=== PATIENT | female | born 1945 | race Caucasian/White ===

== ENCOUNTER 2017-06-26 11:24 | Emergency (ER) | payer OTHER ==
[~2017-06-26] VITALS: Ht 154.9 cm; Wt 54.0 kg
[~2017-06-26 11:24] MED LIST: BLM PO; PREDNISONE 10MG10 M1 PO; ROBITUSSIN W/CO10 ML PO; ZITHROMAX Z-PA250 M1 PO
[2017-06-26 12:27] LABS: ABSOLUTE BASOPHIL COUNT 0 /CUMM (0.0-0.2); ABSOLUTE EOSINOPHIL COUNT 0 /CUMM (0.0-0.7); ABSOLUTE GRANULOCYTE CT 7.3 /CUMM (1.4-6.5); ABSOLUTE LYMPH COUNT 1.4 /CUMM (1.2-3.4); ABSOLUTE MONOCYTE COUNT 0.5 /CUMM (0.10-0.60); BASOPHIL % 0 % (0.0-2.0); EOSINOPHIL % 0.3 % (0-5); GRANULOCYTE % 79.3 % (42.2-75.2); HEMATOCRIT 41.5 % (37-47); MEAN CORPUSCULAR HGB 29.1 PG (27.0-31.0); MEAN CORPUSCULAR HGB CONC 33.5 G/DL (33.0-37.0); MEAN CORPUSCULAR VOLUME 86.8 FL (81.0-99.0); MEAN PLATELET VOLUME 9.3 FL (7.4-10.4); RBC DISTRIBUTION WIDTH 13.8 % (11.5-14.5); RED BLOOD CELL CT 4.78 /CUMM (4.20-5.40); WHITE BLOOD CELL COUNT 9.3 /CUMM (4.8-10.8)
[2017-06-26 12:44] LABS: PLATELET COUNT 224 /CUMM (130-400)
--- NOTE | 2017-06-26 13:44 | ED GENERAL ADULT ---
History of Present Illness General Chief Complaint: Chest Pain Stated Complaint: CP,VOMITING Source: patient, family Exam Limitations: clinical condition, SEVERE NAUSEA Vital Signs & Intake/Output Vital Signs & Intake/Output Vital Signs Date Time Temp Pulse Resp B/P B/P Pulse O2 O2 Flow FiO2 Mean Ox Delivery Rate 06/262 98/54 06/26 1915 98.3 63 18 82/48 99 Room Air 06/26 1736 90/54 06/26 1629 97.9 61 18 72/54 97 Room Air 06/26 1211 97.2 64 16 148/89 97 Room Air Allergies Coded Allergies: MDX - Adhesive (Adhesive) (RASH FROM ADHESIVE TAPE 02/28/13) MDX - Penicillin (UNKNOWN 05/04/12) MDX - TAPE (TAPE) (RASH FROM ADHESIVE TAPE 02/28/13) Uncoded Allergies: MOST NARCOTICS (NAUSEA 10/13/13) Reconcile Medications Azithromycin (Zithromax Z-Sonny) 250 MG CAP 1 DP PO AD OM 2 the first day followed by 1 for days 2-5 LIDO/MAAL/TISH (Magic Mouthwash) (Lido-Visc2% 30ML/[id number],MAALOX 120ml) 270 ML YEHUDA 10 ML PO TID PRN Mouth Pain EQUAL PARTS Metoclopramide HCl (Reglan) 10 MG TABLET 1 TAB PO Q6-PRN PRN nausea/vomiting 30 minutes before meals and bedtime Prednisone 10 MG TAB 1 TAB PO AD INFLAMMATION 3 TABS TWICE A DAY- DAY1,DAY2 2 TABS TWICE A DAY- DAY3,DAY4 3 TABS DAY 5 2 TABS DAY 6 Promethazine HCl 25 MG TABLET 1 TAB PO Q6P PRN NAUSEA/VOMITING Robitussin AC (Guaifenesin-Codeine Syrup) 10 ML UDC 5 ML PO Q6 COUGH Triage Note: PT TO ER C/O CHEST PAIN 10/22. PT STATES SHE HAS BEEN VOMITTING AND NAUSEOUS. PT STATES THAT SHE HAS A RASH TO HER ARMS AND HER PCP PUT HER ON PREDNISONE. PT STATES THAT SHE USE TO BE A TYPE 2 DIABETIC BUT LOST WEIGHT AND HAS BEEN FINE. PT STATES THAT SHE IS LIGHT HEADED AND FEELS WEEK. Triage Nurses Notes Reviewed? yes Onset: Gradual Duration: hour(s):, continues in ED, getting worse, intermittent, SINCE 8:00 THIS MORNING Severity: severe HPI: Patient presents for evaluation of multiple episodes of vomiting along with chest pain that began about 8:00 this morning. In addition the patient states that she has had multiple episodes of loose stool/ diarrhea and also a headache that she attributes to all of the vomiting. (Josephine JACKSON,Emanuel Oshea) Past History Travel History Traveled to [place] past 21 day No Medical History Any Pertinent Medical History? see below for history Endocrine: diabetes Other Medical Hx: Lichen planus Influenza Vaccine: 02/15/04 Surgical History Surgical History: non-contributory Psychosocial History Who do you live with Spouse Services at Home None What is your primary language [place] Citizen Tobacco Use: Never used Family History Hx Contributory? No (Josephine JACKSON,Emanuel Oshea) Review of Systems Review of Systems Constitutional: Reports: no symptoms. EENTM: Reports: no symptoms. Respiratory: Reports: no symptoms. Cardiovascular: Reports: see HPI. GI: Reports: see HPI. Genitourinary: Reports: no symptoms. Musculoskeletal: Reports: no symptoms. Skin: Reports: no symptoms. Neurological/Psychological: Reports: headache. Hematologic/Endocrine: Reports: no symptoms. Immunologic/Allergic: Reports: no symptoms. All Other Systems: Reviewed and Negative (Josephine JACKSON,Emanuel Oshea) Physical Exam Physical Exam General Appearance: SEE BELOW Comments: Gen.: Well-nourished, well-developed, no acute respiratory distress. Severely distressed secondary to nausea Head: Normocephalic, atraumatic. Eyes: Normal inspection bilaterally Ears: Normal inspection bilaterally Nose: Normal inspection Throat/mouth : Moist mucosa Neck: Supple, full range of motion, no goiter Heart: Regular rate and rhythm, no murmurs rubs or gallops Lungs: Clear to auscultation bilaterally with normal air entry Chest: Nontender Back: Normal range of motion Abdomen: Soft, nontender, nondistended, normal bowel sounds Extremities: Normal range of motion grossly, equal radial pulses, no cyanosis clubbing or edema Neurologic: Cranial nerves grossly intact, speech is clear Skin: warm and dry Psychiatric: Calm, cooperative, no apparent delusions or hallucinations Core Measures ACS in differential dx? No CVA/TIA Diagnosis: No Sepsis Present: No Sepsis Focused Exam Completed? No (Emanuel Burton MD) Progress Differential Diagnoses I considered the following diagnoses in my evaluation of the patient: Plan of Care: Orders Procedure Date/time Status LACTIC ACID 06/26 1448 Complete URINALYSIS 06/26 1148 Complete TROPONIN LEVEL 06/26 1148 Complete LACTIC ACID 06/26 1148 Complete COMPREHENSIVE METABOLIC PANEL 06/26 1148 Complete CBC WITHOUT DIFFERENTIAL 06/26 114 Complete EKG 06/26 1127 Active Laboratory Tests 06/26/17 1915: Urine Color YEL, Urine Clarity CLEAR, Urine pH 8.0, Ur Specific [place] 1.010, Urine Protein NEG, Urine Ketones NEG, Urine Nitrite NEG, Urine Bilirubin NEG, Urine Urobilinogen 0.2, Ur Leukocyte Esterase NEG, Ur Microscopic EXAM NOT REQUIRED, Urine Hemoglobin NEG, Urine Glucose NEG 06/26/17 1622: Lactic Acid 1.7 06/26/17 1220: Anion Gap 10, Estimated GFR > 60, BUN/Creatinine Ratio 33.3 H, Glucose 117 H, Lactic Acid 2.1, Calcium 10.6 H, Total Bilirubin 0.5, AST 19, ALT 15, Alkaline Phosphatase 59, Troponin I < 0.01, Total Protein 7.5, Albumin 4.4, Globulin 3.1, Albumin/Globulin Ratio 1.4, CBC w Diff NO MAN DIFF REQ, RBC 4.78, MCV 86.8, MCH 29.1, MCHC 33.5, RDW 13.8, MPV 9.3, Gran % 79.3 H, Lymphocytes % 15.2 L, Monocytes % 5.2, Eosinophils % 0.3, Basophils % 0, Absolute Granulocytes 7.3 H, Absolute Lymphocytes 1.4, Absolute Monocytes 0.5, Absolute Eosinophils 0, Absolute Basophils 0 Diagnostic Imaging: Discussed w/RAD: CT Scan. Radiology Impression: PATIENT: TRUONG KWOK PRESENT AGE: 72 PATIENT ACCOUNT NO: [id number] : 44 LOCATION: [facility] ORDERING PHYSICIAN: Emanuel Burton MD SERVICE DATE: 06/26/17 EXAM TYPE : CAT - CT ABD & PELVIS W IV CONTRAST EXAMINATION: CT ABDOMEN AND PELVIS WITH CONTRAST CLINICAL INFORMATION: Abdominal pain, colitis, diverticulitis , nausea COMPARISON: 09/16/2012 CT abdomen pelvis TECHNIQUE: Multidetector volumetric imaging was performed of the abdomen and pelvis following IV administration of 95 mL of Optiray 320 intravenous contrast. Sagittal and coronal reformatted images were obtained on the technologist's workstation. DLP: 247.60 mGy-cm FINDINGS: LUNG BASES: Limited images of lower thorax demonstrate patchy groundglass opacities in the bilateral lower lobes, predominantly on the right site. No pleural effusion. LIVER, GALLBLADDER, AND BILIARY TREE: The liver is normal in size, shape, and attenuation. No focal hepatic lesion or biliary ductal dilatation is present. The gallbladder is unremarkable with no evidence of radiopaque gallstones, gallbladder wall thickening, or obvious pericholecystic inflammatory changes. PANCREAS: Unremarkable. SPLEEN: Unremarkable. ADRENAL GLANDS: Unremarkable. KIDNEYS AND URETERS: The kidneys are normal in size, shape, and attenuation. No hydronephrosis, hydroureter, or calculi seen. No perinephric stranding. BLADDER: The urinary bladder is distended. There is trace amount of intravesical air, seen on sagittal image 60 and axial images 61 from series 2. No bladder stone. GASTROINTESTINAL TRACT: A gastric band is in place. There is a moderate size hiatal hernia, which contains the proximal part of the stomach, above the gastric band. The distal stomach is decompressed. The loops of the small bowel and colon are not dilated. Moderate diverticular disease of the sigmoid colon noted. No CT evidence of acute diverticulitis. There is no abnormal wall thickening or pericolonic inflammatory changes. There is no free fluid in the abdomen or pelvis. The appendix is not clearly seen, however there are no inflammatory changes to suggest acute appendicitis. ABDOMINAL WALL: No significant hernia is appreciated. LYMPH NODES: Normal. VASCULAR: Unremarkable. PELVIC VISCERA: The uterus and adnexa are unremarkable. OSSEOUS STRUCTURES: No aggressive bony lesion or acute bone fracture. IMPRESSION: Patchy groundglass airspace disease in the bilateral lower lobe, right more than left could represent pneumonia. Clinical correlation is suggested. A moderate size hiatal hernia which contains the proximal stomach above the gastric band. Colon diverticulosis without evidence of acute diverticulitis. DICTATED BY: Gil Rudd MD DATE/TIME DICTATED:06/26/171633 PAPER AND PRINTS RESTORER:KESHIA DATE/TIME TRANSCRIBED:06/26/171633 CONFIDENTIAL, DO NOT COPY WITHOUT APPROPRIATE AUTHORIZATION. <Electronically signed in Other Vendor System> SIGNED BY: Gil Rudd MD 06/26/17 2217 Initial ED EKG: NSR, rate (58) Comments: 06/26/2017 2:00:45 PM fluids and Phenergan ordered. Patient states her chest pain has resolved and her headache is improving. 06/26/2017 5:21:48 PM I have updated Truong on test results. She was in fact found sleeping upon my arrival and states she feels much better than upon presentation. With further questioning it there appears to be no history of dyspnea or productive cough. I doubt the patient truly has pneumonia as insinuated by the abdominal CAT scan. Patient agrees that this is unlikely. 06/26/2017 5:54:02 PM patient's case discussed with Dr. Ambrose Lutz who attempts to review the CAT scan report and call back. In the meantime he suggests a trial of clear liquids. If the patient is able to tolerate clear liquids she might be amenable to outpatient follow-up. 06/26/2017 6:47:11 PM Truong is being evaluated by the surgical PA withdrew 2 mL from the gastric band. fortunately she has been tolerating sips of enhanced water. Patient can be discharged with outpatient follow-up. 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 (Josephine JACKSON,Emanuel Oshea) Comments: Feels better, ambulates without complaint (Ryann JACKSON,Christiano) Departure Departure Disposition: HOME OR SELF CARE Condition: Stable Clinical Impression Primary Impression: Gastroenteritis Referrals: Crystal Goetz APRN (PCP/Family) Additional Instructions: Follow-up with Dr. Miller on Wednesday. Clear liquid diet. Phenergan as needed for nausea or vomiting. Add Reglan if necessary. Return if any concerns or sudden worsening. Please note that there might be incidental findings in your evaluation that are unrelated to the current emergency department visit. Please notify your primary care doctor about this emergency department visit in order to obtain and review all of the testing performed so that these incidental findings can be monitored as needed. If you had an x-ray performed, please understand that some fractures may not be seen on the initial set of x-rays. If your symptoms persist you might need a repeat set of x-rays to check for such a fracture. If you had a laceration evaluated, please understand that foreign bodies such as glass or wood may not be visible to the naked eye or on plain x-rays. If the wound becomes red, swollen, increasingly more painful or if there is any drainage from the wound, please have it reevaluated by a physician for the possibility of a retained foreign body. If you're unable to follow up as outlined in the discharge instructions please return to the emergency department. Thank you for choosing the [facility] Emergency Department for your care. It was a pleasure to serve you today. Emanuel Burton M.D. [facility] Departure Forms: Customer Survey General Discharge Information Prescriptions: Current Visit Scripts Metoclopramide HCl (Reglan) 1 TAB PO Q6-PRN PRN nausea/vomiting #20 TAB 30 minutes before meals and bedtime Promethazine HCl 1 TAB PO Q6P PRN NAUSEA/VOMITING #20 TAB (Josephine JACKSON,Emanuel Oshea) Departure Time of Disposition: 2235 (Ryann JACKSON,Christiano) Critical Care Note Critical Care Note Critical Care Time: 30-74 min (Josephine JACKSON,Emanuel Oshea)
--- NOTE | 2017-06-26 16:59 | CT SCAN REPORT ---
EXAMINATION: CT ABDOMEN AND PELVIS WITH CONTRAST CLINICAL INFORMATION: Abdominal pain, colitis, diverticulitis , nausea COMPARISON: 09/16/2012 CT abdomen pelvis TECHNIQUE: Multidetector volumetric imaging was performed of the abdomen and pelvis following IV administration of 95 mL of Optiray 320 intravenous contrast. Sagittal and coronal reformatted images were obtained on the technologist's workstation. DLP: 247.60 mGy-cm FINDINGS: LUNG BASES: Limited images of lower thorax demonstrate patchy groundglass opacities in the bilateral lower lobes, predominantly on the right site. No pleural effusion. LIVER, GALLBLADDER, AND BILIARY TREE: The liver is normal in size, shape, and attenuation. No focal hepatic lesion or biliary ductal dilatation is present. The gallbladder is unremarkable with no evidence of radiopaque gallstones, gallbladder wall thickening, or obvious pericholecystic inflammatory changes. PANCREAS: Unremarkable. SPLEEN: Unremarkable. ADRENAL GLANDS: Unremarkable. KIDNEYS AND URETERS: The kidneys are normal in size, shape, and attenuation. No hydronephrosis, hydroureter, or calculi seen. No perinephric stranding. BLADDER: The urinary bladder is distended. There is trace amount of intravesical air, seen on sagittal image 60 and axial images 61 from series 2. No bladder stone. GASTROINTESTINAL TRACT: A gastric band is in place. There is a moderate size hiatal hernia, which contains the proximal part of the stomach, above the gastric band. The distal stomach is decompressed. The loops of the small bowel and colon are not dilated. Moderate diverticular disease of the sigmoid colon noted. No CT evidence of acute diverticulitis. There is no abnormal wall thickening or pericolonic inflammatory changes. There is no free fluid in the abdomen or pelvis. The appendix is not clearly seen, however there are no inflammatory changes to suggest acute appendicitis. ABDOMINAL WALL: No significant hernia is appreciated. LYMPH NODES: Normal. VASCULAR: Unremarkable. PELVIC VISCERA: The uterus and adnexa are unremarkable. OSSEOUS STRUCTURES: No aggressive bony lesion or acute bone fracture. IMPRESSION: Patchy groundglass airspace disease in the bilateral lower lobe, right more than left could represent pneumonia. Clinical correlation is suggested. A moderate size hiatal hernia which contains the proximal stomach above the gastric band. Colon diverticulosis without evidence of acute diverticulitis.
[2017-06-26] MEDS ORDERED: REGLAN10 M1 PO (19:00)
[2017-06-26] MEDS ORDERED: PROMETHAZINE HC25 M3 PO (19:00)
--- NOTE | 2017-06-26 19:16 | Cons- Bariatrics Surg ---
Ulisses Mao 06/26/17 1902: General Information and HPI Consulting Request Date of Consult: 06/26/17 Requested By: Dr Burton, ER Reason for Consult: abdominal pain, nvd, hx of lap band surgery Source of Information: patient, family Exam Limitations: no limitations History of Present Illness: 72 yo female with sudden onset abdominal pain, nvd that started this am. she presented to the ER with severe cramping diffuse abdominal pain. no fever. hx of lap band surgery [address] Shahid Lutz. hx of GERD and has chronic reflux symptoms over the last several years. She was noted to be hypotensive in the ER. Labs drawn and CT scan was performed and she was treated with pepcid, IVF and antiemetics IV. Bariatric surgery was called for eval of the lap band. at time of my evaluation, pt is feeling significantly better and is able to tolerate po fluids, has no abominal pain, no vomiting and BP is improving. Allergies/Medications Allergies: Coded Allergies: MDX - Adhesive (Adhesive) (RASH FROM ADHESIVE TAPE 02/28/13) MDX - Penicillin (UNKNOWN 05/04/12) MDX - TAPE (TAPE) (RASH FROM ADHESIVE TAPE 02/28/13) Uncoded Allergies: MOST NARCOTICS (NAUSEA 10/13/13) Home Med List: Azithromycin (Zithromax Z-Sonny) 250 MG CAP 1 DP PO AD OM 2 the first day followed by 1 for days 2-5 LIDO/MAAL/TISH (Magic Mouthwash) (Lido-Visc2% 30ML/[id number],MAALOX 120ml) 270 ML YEHUDA 10 ML PO TID PRN Mouth Pain EQUAL PARTS Metoclopramide HCl (Reglan) 10 MG TABLET 1 TAB PO Q6-PRN PRN nausea/vomiting 30 minutes before meals and bedtime Prednisone 10 MG TAB 1 TAB PO AD INFLAMMATION 3 TABS TWICE A DAY- DAY1,DAY2 2 TABS TWICE A DAY- DAY3,DAY4 3 TABS DAY 5 2 TABS DAY 6 Promethazine HCl 25 MG TABLET 1 TAB PO Q6P PRN NAUSEA/VOMITING Robitussin AC (Guaifenesin-Codeine Syrup) 10 ML UDC 5 ML PO Q6 COUGH Past History Medical History Endocrine: diabetes Other Medical Hx: Lichen planus obesity, sp lap band Surgical History Pertinent Surgical History: lap band 2006 Psychosocial History Services at Home: None Functional Ability ADLs Independent: dressing, eating, toileting, bathing. Review of Systems Review of Systems Constitutional: Reports: see HPI. EENTM: Reports: no symptoms. Cardiovascular: Reports: no symptoms. Respiratory: Reports: no symptoms. GI: Reports: see HPI. Genitourinary: Reports: no symptoms. Musculoskeletal: Reports: no symptoms. Skin: Reports: no symptoms. Neurological/Psychological: Reports: no symptoms. Exam & Diagnostic Data Vital Signs and I&O Vital Signs Date Time Temp Pulse Resp B/P B/P Pulse O2 O2 Flow FiO2 Mean Ox Delivery Rate 06/26 1736 90/54 06/26 1629 97.9 61 18 72/54 97 Room Air 06/26 1211 97.2 64 16 148/89 97 Room Air Intake & Output 06/26 1600 06/26 0800 06/26 0000 06/25 1600 06/25 0800 06/25 0000 Intake Total Output Total Balance Patient 119 lb Weight Physical Exam General Appearance: well developed/nourished, no apparent distress, alert, awake , comfortable Head: atraumatic, normal appearance Eyes: Bilateral: normal appearance. Ears, Nose, Throat: normal ENT inspection Neck: normal inspection Respiratory: normal breath sounds, chest non-tender, no respiratory distress Cardiovascular: regular rate/rhythm Gastrointestinal: normal bowel sounds, soft, non-tender, no organomegaly Extremities: normal inspection, no edema Neurologic/Psych: no motor/sensory deficits, awake, alert, oriented x 3 Last 24 Hours of Labs: Laboratory Tests 06/26 06/26 1622 1220 Chemistry Sodium (137 - 145 mmol/L) 144 Potassium (3.5 - 5.1 mmol/L) 5.2 H Chloride (98 - 107 mmol/L) 96 L Carbon Dioxide (22 - 30 mmol/L) 38 H Anion Gap (5 - 16) 10 BUN (7 - 17 mg/dL) 20 H Creatinine (0.5 - 1.0 mg/dL) 0.6 Estimated GFR (>60 ml/min) > 60 BUN/Creatinine Ratio (7 - 25 %) 33.3 H Glucose (65 - 99 mg/dL) 117 H Lactic Acid (0.7 - 2.1 mmol/L) 1.7 2.1 Calcium (8.4 - 10.2 mg/dL) 10.6 H Total Bilirubin (0.2 - 1.3 mg/dL) 0.5 AST (14 - 36 U/L) 19 ALT (9 - 52 U/L) 15 Alkaline Phosphatase (<127 U/L) 59 Troponin I (< 0.11 ng/ml) < 0.01 Total Protein (6.3 - 8.2 g/dL) 7.5 Albumin (3.5 - 5.0 g/dL) 4.4 Globulin (1.9 - 4.2 gm/dL) 3.1 Albumin/Globulin Ratio (1.1 - 2.2 %) 1.4 Hematology CBC w Diff NO MAN DIFF REQ WBC (4.8 - 10.8 /CUMM) 9.3 RBC (4.20 - 5.40 /CUMM) 4.78 Hgb (12.0 - 16.0 G/DL) 13.9 Hct (37 - 47 %) 41.5 MCV (81.0 - 99.0 FL) 86.8 MCH (27.0 - 31.0 PG) 29.1 MCHC (33.0 - 37.0 G/DL) 33.5 RDW (11.5 - 14.5 %) 13.8 Plt Count (130 - 400 /CUMM) 224 MPV (7.4 - 10.4 FL) 9.3 Gran % (42.2 - 75.2 %) 79.3 H Lymphocytes % (20.5 - 51.1 %) 15.2 L Monocytes % (1.7 - 9.3 %) 5.2 Eosinophils % (0 - 5 %) 0.3 Basophils % (0.0 - 2.0 %) 0 Absolute Granulocytes (1.4 - 6.5 /CUMM) 7.3 H Absolute Lymphocytes (1.2 - 3.4 /CUMM) 1.4 Absolute Monocytes (0.10 - 0.60 /CUMM) 0.5 Absolute Eosinophils (0.0 - 0.7 /CUMM) 0 Absolute Basophils (0.0 - 0.2 /CUMM) 0 Imaging Results: PATIENT: TRUONG KWOK PRESENT AGE: 72 PATIENT ACCOUNT NO: [id number] : 44 LOCATION: [facility] ORDERING PHYSICIAN: Emanuel Burton MD SERVICE DATE: 06/26/17 EXAM TYPE: CAT - CT ABD & PELVIS W IV CONTRAST EXAMINATION: CT ABDOMEN AND PELVIS WITH CONTRAST CLINICAL INFORMATION: Abdominal pain, colitis, diverticulitis , nausea COMPARISON: 09/16/2012 CT abdomen pelvis TECHNIQUE: Multidetector volumetric imaging was performed of the abdomen and pelvis following IV administration of 95 mL of Optiray 320 intravenous contrast. Sagittal and coronal reformatted images were obtained on the technologist's workstation. DLP: 247.60 mGy-cm FINDINGS: LUNG BASES: Limited images of lower thorax demonstrate patchy groundglass opacities in the bilateral lower lobes, predominantly on the right site. No pleural effusion. LIVER, GALLBLADDER, AND BILIARY TREE: The liver is normal in size, shape, and attenuation. No focal hepatic lesion or biliary ductal dilatation is present. The gallbladder is unremarkable with no evidence of radiopaque gallstones, gallbladder wall thickening, or obvious pericholecystic inflammatory changes. PANCREAS: Unremarkable. SPLEEN: Unremarkable. ADRENAL GLANDS: Unremarkable. KIDNEYS AND URETERS: The kidneys are normal in size, shape, and attenuation. No hydronephrosis, hydroureter, or calculi seen. No perinephric stranding. BLADDER: The urinary bladder is distended. There is trace amount of intravesical air, seen on sagittal image 60 and axial images 61 from series 2. No bladder stone. GASTROINTESTINAL TRACT: A gastric band is in place. There is a moderate size hiatal hernia, which contains the proximal part of the stomach, above the gastric band. The distal stomach is decompressed. The loops of the small bowel and colon are not dilated. Moderate diverticular disease of the sigmoid colon noted. No CT evidence of acute diverticulitis. There is no abnormal wall thickening or pericolonic inflammatory changes. There is no free fluid in the abdomen or pelvis. The appendix is not clearly seen, however there are no inflammatory changes to suggest acute appendicitis. ABDOMINAL WALL: No significant hernia is appreciated. LYMPH NODES: Normal. VASCULAR: Unremarkable. PELVIC VISCERA: The uterus and adnexa are unremarkable. OSSEOUS STRUCTURES: No aggressive bony lesion or acute bone fracture. IMPRESSION: Patchy groundglass airspace disease in the bilateral lower lobe, right more than left could represent pneumonia. Clinical correlation is suggested. A moderate size hiatal hernia which contains the proximal stomach above the gastric band. Colon diverticulosis without evidence of acute diverticulitis. DICTATED BY: Gil Rudd MD DATE/TIME DICTATED:06/26/17 1634 Assessment/Plan Assessment/Plan 72 yo female with acute onset of abdominal pain, nvd, dehydration, improved after IVF in ER to aide in pts PO intake, the gastric band fluid was removed. the port was palpated in the R mid abdominal region without difficluty. steril prep, 1 inch askew needle introduced into the port without difficluty and the entirety of the fluid aspirated, 2cc total. pt tolerated without complications. Rec cont po hydration and if she continues to tolerate fluids without difficluty , she may be discharged home with close follow up this week with Dr Lutz. Pt and nancy understand and agree with plan. Dw Dr Guido Lutz and ER physician Dr Burton. Problem List: 1. Gastroenteritis 2. Hx of laparoscopic gastric banding Consult Acknowledgment - Thank you for your consult request. Emanuel Burton MD 06/26/171925: Assessment/Plan Consult Acknowledgment - Thank you for your consult request.
[2017-06-26 21:22] VITALS: BP 98/54
== END 2017-06-26 22:39 ==
LOC: ERH 11:24
PROVIDERS: Physician Assistant Medical
DX: R07.9 Chest pain, unspecified (principal); K52.9 Noninfective gastroenteritis and colitis, unspecified
CPT/HCPCS: 74177; 81003; 93005; 93010; 96374; 96375; 99291; J2550; J2765; J3101

== ENCOUNTER 2017-06-28 05:15 | Inpatient (IN) | payer OTHER ==
[~2017-06-28] VITALS: Ht 154.9 cm; Wt 53.6 kg
[~2017-06-28 05:15] MED LIST changes: +PROMETHAZINE HC25 M3 PO; +REGLAN10 M1 PO
--- NOTE | 2017-06-28 05:36 | ED GI/GU/ABDOMINAL COMPLAINT ---
See Addendum History of Present Illness General Chief Complaint: Nausea, Vomiting, Diarrhea Stated Complaint: NAUSEA, VOMITING Source: patient, family, old records, EMS Exam Limitations: no limitations Vital Signs & Intake/Output Vital Signs & Intake/Output Vital Signs Date Time Temp Pulse Resp B/P B/P Pulse O2 O2 Flow FiO2 Mean Ox Delivery Rate 06/28 0732 97.0 80 16 160/76 100 Room Air 06/28 0649 96.9 101 18 155/90 97 Room Air 06/28 0518 96.7 107 22 159/74 98 Room Air Allergies Coded Allergies: adhesive tape (Intermediate, RASH 06/28/17) Penicillins (UNKNOWN 06/28/17) Uncoded Allergies: MOST NARCOTICS (Mild, NAUSEA 06/28/17) Reconcile Medications Azithromycin (Zithromax Z-Sonny) 250 MG CAP 1 DP PO AD OM 2 the first day followed by 1 for days 2-5 LIDO/MAAL/TISH (Magic Mouthwash) (Lido-Visc2% 30ML/[id number],MAALOX 120ml) 270 ML YEHUDA 10 ML PO TID PRN Mouth Pain EQUAL PARTS Metoclopramide HCl (Reglan) 10 MG TABLET 1 TAB PO Q6-PRN PRN nausea/vomiting 30 minutes before meals and bedtime Prednisone 10 MG TAB 1 TAB PO AD INFLAMMATION 3 TABS TWICE A DAY- DAY1,DAY2 2 TABS TWICE A DAY- DAY3,DAY4 3 TABS DAY 5 2 TABS DAY 6 Promethazine HCl 25 MG TABLET 1 TAB PO Q6P PRN NAUSEA/VOMITING Robitussin AC (Guaifenesin-Codeine Syrup) 10 ML UDC 5 ML PO Q6 COUGH Triage Nurses Notes Reviewed? yes LMP (ages 10-50): post menopausal ? n Is pt currently ? No Onset: Evening Duration: hour(s):, constant, continues in ED Timing: recent history Quality/Severity: cramping, severe, vomiting Location: epigastric Radiation: no radiation Activities at Onset: rest Prior Abdominal Problems: similar symptoms Past Sexual History: Unobtainable at this time Modifying Factors: Worsens With: eating. Associated Symptoms: abdominal pain, loss of appetite, nausea/vomiting HPI: Less than 1 day prior to admission patient had recurrent nausea vomiting crampy epigastric pain with associated weakness. She denies fever chills diarrhea chest pain cough shortness breath headache dysuria rash bleeding. She was seen 2 days ago with deflation of lap band. (Christiano Garzon MD) Past History Travel History Traveled to [place] past 21 day No Medical History Any Pertinent Medical History? see below for history Endocrine: diabetes Other Medical Hx: Lichen planus obesity, sp lap band Surgical History Surgical History: lap band 2006 Psychosocial History Who do you live with Spouse Services at Home None What is your primary language Singaporean Family History Hx Contributory? No (Christiano Garzon MD) Review of Systems Review of Systems Constitutional: Reports: see HPI. EENTM: Reports: no symptoms. Respiratory: Reports: no symptoms. Cardiovascular: Reports: no symptoms. GI: Reports: see HPI, abdominal pain, nausea, vomiting. Genitourinary: Reports: no symptoms. Musculoskeletal: Reports: no symptoms. Skin: Reports: no symptoms. Neurological/Psychological: Reports: no symptoms. Hematologic/Endocrine: Reports: no symptoms. Immunologic/Allergic: Reports: no symptoms. All Other Systems: Reviewed and Negative (Christiano Garzon MD) Physical Exam Physical Exam General Appearance: well developed/nourished, alert, awake, anxious, moderate distress, thin Head: atraumatic, normal appearance Eyes: Bilateral: normal appearance, PERRL, EOMI, normal inspection. Ears, Nose, Throat, Mouth: hearing grossly normal Neck: normal inspection, supple, full range of motion, normal alignment Respiratory: normal breath sounds, chest non-tender, no respiratory distress, quiet respiration, lungs clear Cardiovascular: regular rate/rhythm, normal peripheral pulses, norml femoral pulses equa Peripheral Pulses: 4+ carotid (R), 4+ carotid (L) Gastrointestinal: normal bowel sounds, soft, non-tender, no organomegaly Back: normal inspection, normal range of motion Extremities: normal range of motion, no ligament instability Neurologic/Psych: no motor/sensory deficits, awake, alert, oriented x 3, normal gait, normal mood/affect, 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 No Sepsis Present: No Sepsis Focused Exam Completed? No (Christiano Garzon MD) Progress Differential Diagnosis: gastritis, PUD/GERD, gastroparesis Plan of Care: Orders Procedure Date/time Status XRY-UPPER GI SERIES 06/28 0650 Active Add-on Test (ER Only) 06/28 0532 Active MAGNESIUM 06/28 0530 Complete URINALYSIS 06/28 05 Complete LIPASE 06/28 05 Complete COMPREHENSIVE METABOLIC PANEL 06/29 523 Complete CBC WITHOUT DIFFERENTIAL 06/29 523 Complete Laboratory Tests 06/28/17 0530: Anion Gap 13, Estimated GFR > 60, BUN/Creatinine Ratio 16.0, Glucose 112 H, Calcium 9.5, Magnesium 1.9, Total Bilirubin 0.9, AST 21, ALT 24, Alkaline Phosphatase 61, Total Protein 7.2, Albumin 4.3, Globulin 2.9, Albumin/Globulin Ratio 1.5, Lipase 118, CBC w Diff NO MAN DIFF REQ, RBC 4.78, MCV 86.5, MCH 28.9, MCHC 33.3, RDW 13.8, MPV 9.1, Gran % 64.9, Lymphocytes % 24.5, Monocytes % 7.6, Eosinophils % 2.5, Basophils % 0.5, Absolute Granulocytes 4.9, Absolute Lymphocytes 1.9, Absolute Monocytes 0.6, Absolute Eosinophils 0.2, Absolute Basophils 0, Urinalysis MOD H, Urine Color STRAW, Urine Clarity CLEAR, Urine pH 7.0, Ur Specific [place] 1.015, Urine Protein NEG, Urine Ketones NEG, Urine Nitrite POS H, Urine Bilirubin NEG, Urine Urobilinogen 0.2, Ur Leukocyte Esterase TRACE H, Ur Microscopic SEDIMENT EXAMINED, Urine RBC 5-10 H, Urine WBC 5-10 H, Ur Epithelial Cells FEW, Urine Bacteria MANY H, Urine Mucus FEW, Urine Hemoglobin TRACE-INTACT, Urine Glucose NEG Initial ED EKG: none Hand-Off Endorsed To: Emanuel Alba DO Endorsed Time: 714 Pending: consult, other Comments: Discussed with Dr. Jan Lutz someone from group to see in ED. Requests esophagogram prior to determine possible etiology of n/v. (Christiano Garzon MD) Departure Departure Disposition: STILL A PATIENT Condition: Stable Clinical Impression Primary Impression: Nausea and vomiting in adult Referrals: Crystal Goetz APRN (PCP/Family) Departure Forms: Customer Survey General Discharge Information (Christiano Garzon MD) Departure Comments 06/28/17 The patient was signed out to me by Dr. Garzon. She is waiting for evaluation by the bariatric surgeon. She has ongoing nausea and vomiting. (Emanuel Alba DO)
[2017-06-28 05:43] LABS: ABSOLUTE BASOPHIL COUNT 0 /CUMM (0.0-0.2); ABSOLUTE EOSINOPHIL COUNT 0.2 /CUMM (0.0-0.7); ABSOLUTE GRANULOCYTE CT 4.9 /CUMM (1.4-6.5); ABSOLUTE LYMPH COUNT 1.9 /CUMM (1.2-3.4); ABSOLUTE MONOCYTE COUNT 0.6 /CUMM (0.10-0.60); BASOPHIL % 0.5 % (0.0-2.0); EOSINOPHIL % 2.5 % (0-5); GRANULOCYTE % 64.9 % (42.2-75.2); HEMATOCRIT 41.4 % (37-47); MEAN CORPUSCULAR HGB 28.9 PG (27.0-31.0); MEAN CORPUSCULAR HGB CONC 33.3 G/DL (33.0-37.0); MEAN CORPUSCULAR VOLUME 86.5 FL (81.0-99.0); MEAN PLATELET VOLUME 9.1 FL (7.4-10.4); PLATELET COUNT 208 /CUMM (130-400); RBC DISTRIBUTION WIDTH 13.8 % (11.5-14.5); RED BLOOD CELL CT 4.78 /CUMM (4.20-5.40); WHITE BLOOD CELL COUNT 7.6 /CUMM (4.8-10.8)
--- NOTE | 2017-06-28 11:59 | RADIOLOGY REPORT ---
EXAMINATION: SINGLE-CONTRAST FLUOROSCOPIC UPPER GI SERIES with KUB CLINICAL INFORMATION: History of lap band. Now with nausea and vomiting. COMPARISON: CT scan of the abdomen and pelvis dated 06/26/2017. TECHNIQUE: Examination performed with dilute barium. Spot radiographs (15) and 7 cine fluoroscopy runs were obtained. FINDINGS: The civil service clerk film shows a port in the right side of the abdomen with intact tubing extending to the gastric band in the left upper quadrant which is oriented at 45 degrees superior to the horizontal plane. Several lindsay are seen in the epigastric region. Patient ingested barium without difficulty. There is mild esophageal hypotonia with slowed esophageal emptying. There is a small hiatal hernia with herniation of the gastric pouch into the lower chest. The lap band remains situated below the diaphragm. The ingested barium passes freely through the gastric band without obstruction seen. A nonobstructing Schatzki ring and minimal irregularity of the distal esophagus is seen at the GE junction. No esophageal dilatation, gastric band slippage or distal gastric obstruction identified. FLUOROSCOPY TIME: 2.10 minutes. IMPRESSION: 1. Small hiatal hernia, containing the gastric pouch. 2. There may be a subtle nonobstructing Schatzki ring with slight esophageal irregularity at the GE junction, raising the suspicion of subtle esophagitis. No ulceration or mass is seen. 3. No evidence of gastric outlet obstruction.
--- NOTE | 2017-06-28 15:00 | History & Physical ---
Rosalba JACKSON,Darius 06/28/17 1459: General Information and HPI History of Present Illness: Ms. Ivey is a 72-year-old female with past medical history of diabetes mellitus, GERD, obesity status post [place] [address] Miller, lichen planus on prednisone followed by Dr. Talavera, and esophageal spasms followed by Dr. Parkinson who presents with nausea and vomiting. The patient reports that the nausea started on Wednesday. It started as a small pain in her chest and progressed to vomiting. She came to the emergency room on Wednesday and was treated with antinausea medications. She felt some relief and went home that night. Wednesday she felt good had a clear liquid diet and had no nausea or vomiting. However on Wednesday, she began experiencing pain in the chest again and nausea. She describes the pain as electric, in the center of her chest, comes and goes, and progresses. She tried the nausea medication she was prescribed but felt no relief so she came to the emergency room for further evaluation. She additionally reports 6-7 nonbloody loose stools per day, chills, night sweats, cough at nighttime, and no relationship to food intake. She has no fever, shortness breath, dysuria, recent on food intake, sick contacts, travel. She did recently start course of prednisone for the lichen planus. Last colonoscopy was in 2012. She did have an endoscopy in 2012 that showed distal erosive esophagitis with a hiatal hernia. Pathology subsequently revealed features consistent with reactive gastropathy and mild chronic inflammation and congestion but no evidence of malignancy. She is a former smoker and denies alcohol or drug use. Allergies/Medications Allergies: Coded Allergies: adhesive tape (Intermediate, RASH 06/28/17) Penicillins (UNKNOWN 06/28/17) Uncoded Allergies: MOST NARCOTICS (Mild, NAUSEA 06/28/17) Home Med list Azithromycin (Zithromax Z-Sonny) 250 MG CAP 1 DP PO AD OM 2 the first day followed by 1 for days 2-5 LIDO/MAAL/TISH (Magic Mouthwash) (Lido-Visc2% 30ML/[id number],MAALOX 120ml) 270 ML YEHUDA 10 ML PO TID PRN Mouth Pain EQUAL PARTS Metoclopramide HCl (Reglan) 10 MG TABLET 1 TAB PO Q6-PRN PRN nausea/vomiting 30 minutes before meals and bedtime Prednisone 10 MG TAB 1 TAB PO AD INFLAMMATION 3 TABS TWICE A DAY- DAY1,DAY2 2 TABS TWICE A DAY- DAY3,DAY4 3 TABS DAY 5 2 TABS DAY 6 Promethazine HCl 25 MG TABLET 1 TAB PO Q6P PRN NAUSEA/VOMITING Robitussin AC (Guaifenesin-Codeine Syrup) 10 ML UDC 5 ML PO Q6 COUGH Past History Travel History Traveled to [place] past 21 day No Medical History Neurological: NONE EENT: NONE Cardiovascular: NONE Respiratory: NONE Gastrointestinal: GERD, hiatal hernia, LAPBAND Hepatic: NONE Renal: NONE Musculoskeletal: NONE Psychiatric: NONE Endocrine: diabetes Other Medical Hx: Lichen planus obesity, sp lap band Surgical History Surgical History: lap band 2006 Past Family/Social History Psychosocial History Services at Home: None Smoking Status: Former Smoker ETOH Use: denies use Illicit Drug Use: denies illicit drug use Functional Ability ADLs Independent: dressing, eating, toileting, bathing. Sexual History Past Sexual History Unobtainable at this time Review of Systems Review of Systems Constitutional: Reports: see HPI. EENTM: Reports: no symptoms. Cardiovascular: Reports: see HPI. Respiratory: Reports: no symptoms. GI: Reports: see HPI. Genitourinary: Reports: no symptoms. Musculoskeletal: Reports: no symptoms. Skin: Reports: see HPI. Neurological/Psychological: Reports: no symptoms. Hematologic/Endocrine: Reports: no symptoms. Immunologic/Allergic: Reports: no symptoms. All Other Systems: Reviewed and Negative Exam & Diagnostic Data Last 24 Hrs of Vital Signs/I&O Vital Signs Date Time Temp Pulse Resp B/P B/P Pulse O2 O2 Flow FiO2 Mean Ox Delivery Rate 06/28 1423 98.7 71 18 140/80 100 Room Air 06/28 1144 97.6 70 18 161/89 100 Room Air 06/28 1000 97.0 88 18 158/86 96 Room Air 06/28 0732 97.0 80 16 160/76 100 Room Air 06/28 0649 96.9 101 18 155/90 97 Room Air 06/28 0518 96.7 107 22 159/74 98 Room Air Intake & Output 06/28 1600 06/28 0800 06/28 0000 Intake Total 1000 Output Total 300 Balance 700 Intake, IV 1000 Output, Urine 300 Physical Exam General Appearance Alert, Oriented X3, Cooperative, No Acute Distress Skin No Breakdown HEENT Atraumatic, dry Neck No thryomegaly, No LAD Cardiovascular Regular Rate, Normal S1, Normal S2 Lungs Clear to Auscultation, Normal Air Movement Abdomen Soft, No Hepatospenomegaly, hard mass in center, nontender to palpation Extremities No Edema, Normal Pulses, No Tenderness/Swelling Last 24 Hrs of Labs/Theo: Laboratory Tests 06/28/17 0530: Anion Gap 13, Estimated GFR > 60, BUN/Creatinine Ratio 16.0, Glucose 112 H, Hemoglobin A1c Pending, Calcium 9.5, Magnesium 1.9, Total Bilirubin 0.9, AST 21, ALT 24, Alkaline Phosphatase 61, Troponin I Pending, Total Protein 7.2, Albumin 4.3, Globulin 2.9, Albumin/Globulin Ratio 1.5, Lipase 118, CBC w Diff NO MAN DIFF REQ, RBC 4.78, MCV 86.5, MCH 28.9, MCHC 33.3, RDW 13.8, MPV 9.1, Gran % 64.9, Lymphocytes % 24.5, Monocytes % 7.6, Eosinophils % 2.5, Basophils % 0.5, Absolute Granulocytes 4.9, Absolute Lymphocytes 1.9, Absolute Monocytes 0.6, Absolute Eosinophils 0.2, Absolute Basophils 0, Urinalysis MOD H, Urine Color STRAW, Urine Clarity CLEAR, Urine pH 7.0, Ur Specific [place] 1.015, Urine Protein NEG, Urine Ketones NEG, Urine Nitrite POS H, Urine Bilirubin NEG, Urine Urobilinogen 0.2, Ur Leukocyte Esterase TRACE H, Ur Microscopic SEDIMENT EXAMINED, Urine RBC 5-10 H, Urine WBC 5-10 H, Ur Epithelial Cells FEW, Urine Bacteria MANY H, Urine Mucus FEW, Urine Hemoglobin TRACE-INTACT, Urine Glucose NEG Assessment/Plan Assessment: Ms. Ivey is a 72-year-old female with past medical history of diabetes mellitus, GERD, obesity status post [place] [address] Miller, lichen planus on prednisone followed by Dr. Talavera, and esophageal spasms followed by Dr. Parkinson who presents with nausea and vomiting. Presentation, vital signs were T 96.7, HR 107, RR 22, BP 159/74, saturating 98% on room air. Laboratories were sent in for normal CBC and BEP and LFTs. Urinalysis was positive for nitrates, leukocyte esterase, and 510 WBCs. Her GI series showed a small hiatal hernia containing the gastric pouch, a subtle nonobstructing Schatzki ring with slight esophageal irregularity of the GE junction raising suspicion for esophagitis, and no evidence of gastric outlet obstruction. She was treated with acetaminophen, metoclopramide, promethazine, famotidine, and 1 L normal saline in the emergency room. She'll be admitted to general medicine and treated for the following problems: 1. Esophagitis 2. Chest pain syndrome 3. Acute diarrhea #Esophagitis: Patient presents with nausea and vomiting with history of GERD and previous endoscopy showing esophagitis/gastritis. Upper GI series this time shows esophagitis as well. Other potential etiologies include viral gastroenteritis given that she has experienced chills and night sweats recently. She also has been having diarrhea that would be consistent with this. -Nothing by mouth -IV fluid hydration -Gastroenterology consult -Bariatric surgery consult -Antinausea medications -EKG for QTC #Chest pain syndrome: The patient is complaining of chest/upper epigastric pain most likely consistent with the esophagitis is gastritis. However we will rule her out for FL as well. -EKG and troponins 3 #Acute diarrhea: Patient also experiencing 67 nonbloody loose stools per day. Unclear etiology, may be secondary to the stress of the esophagitis. -Send C. difficile/stool culture -Antidiarrheals if persistent without evidence of infection #Chronic medical palms: -Continue other home medications DVT prophylaxis with enoxaparin Nothing by mouth Full code As Ranked By This Provider Problem List: 1. Esophagitis Core Measures/Misc (11/29) Acute Coronary Syndrome ACS Diagnosis: No Congestive Heart Failure Congestive Heart Failure Diagnosis No Cerebrovascular Accident CVA/TIA Diagnosis: No VTE (View Protocol) VTE Risk Factors Age>40 No Mechanical VTE Prophylaxis d/t N/A MechProphylax Ordered No VTE Pharm Prophylaxis d/t NA PharmProphylax ordered Sepsis (View protocol) Sepsis Present: No Nadine Townsend MD 06/28/17 1635: Attending MD Review Statement Attending Statement Attending MD Statement: examined this patient, discuss w/resident/PA/PRECAST CONCRETE PRODUCTS INSTALLER, agreed w/resident/PA/[employer] CONCRETE PRODUCTS INSTALLER, discussed with family, reviewed EMR data (avail), reviewed images, amended to note Attending Assessment/Plan: 72-year-old female with past medical history significant for gastric lap band 12 years ago, depression, lichen planus who was seen in the emergency room 2 days ago with intractable nausea, vomiting and diarrhea. Patient was seen by surgical PA and fluid was aspirated from the gastric band. Patient was sent home. Claims that next day which was Wednesday she will was fine but then this morning she started to throw up again. She describes nausea as well as epigastric pain which is burning. She claimed that vomiting is intractable. She is also complaining of some epigastric pain. She denies any fevers or chills. She was also recently started on prednisone for lichen planus. She has not taken any prednisone since last 4 days. Vital Signs Date Time Temp Pulse Resp B/P B/P Pulse O2 O2 Flow FiO2 Mean Ox Delivery Rate 06/28 1423 98.7 71 18 140/80 100 Room Air 06/28 1144 97.6 70 18 161/89 100 Room Air 06/28 1000 97.0 88 18 158/86 96 Room Air 06/28 0732 97.0 80 16 160/76 100 Room Air 06/28 0649 96.9 101 18 155/90 97 Room Air 06/28 0518 96.7 107 22 159/74 98 Room Air on exam: aox3, nad. cv; s1, s2, rrr resp; clear abd; soft, mildly tender in epigastrium, bs+ ext; no edema Laboratory Tests 06/28 0530 Chemistry Sodium (137 - 145 mmol/L) 145 Potassium (3.5 - 5.1 mmol/L) 3.8 Chloride (98 - 107 mmol/L) 104 Carbon Dioxide (22 - 30 mmol/L) 28 Anion Gap (5 - 16) 13 BUN (7 - 17 mg/dL) 8 Creatinine (0.5 - 1.0 mg/dL) 0.5 Estimated GFR (>60 ml/min) > 60 BUN/Creatinine Ratio (7 - 25 %) 16.0 Glucose (65 - 99 mg/dL) 112 H Hemoglobin A1c (4.2 - 5.8 %) Pending Calcium (8.4 - 10.2 mg/dL) 9.5 Magnesium (1.6 - 2.3 mg/dL) 1.9 Total Bilirubin (0.2 - 1.3 mg/dL) 0.9 AST (14 - 36 U/L) 21 ALT (9 - 52 U/L) 24 Alkaline Phosphatase (<127 U/L) 61 Troponin I (< 0.11 ng/ml) < 0.01 Total Protein (6.3 - 8.2 g/dL) 7.2 Albumin (3.5 - 5.0 g/dL) 4.3 Globulin (1.9 - 4.2 gm/dL) 2.9 Albumin/Globulin Ratio (1.1 - 2.2 %) 1.5 Lipase (23 - 300 U/L) 118 Hematology CBC w Diff NO MAN DIFF REQ WBC (4.8 - 10.8 /CUMM) 7.6 RBC (4.20 - 5.40 /CUMM) 4.78 Hgb (12.0 - 16.0 G/DL) 13.8 Hct (37 - 47 %) 41.4 MCV (81.0 - 99.0 FL) 86.5 MCH (27.0 - 31.0 PG) 28.9 MCHC (33.0 - 37.0 G/DL) 33.3 RDW (11.5 - 14.5 %) 13.8 Plt Count (130 - 400 /CUMM) 208 MPV (7.4 - 10.4 FL) 9.1 Gran % (42.2 - 75.2 %) 64.9 Lymphocytes % (20.5 - 51.1 %) 24.5 Monocytes % (1.7 - 9.3 %) 7.6 Eosinophils % (0 - 5 %) 2.5 Basophils % (0.0 - 2.0 %) 0.5 Absolute Granulocytes (1.4 - 6.5 /CUMM) 4.9 Absolute Lymphocytes (1.2 - 3.4 /CUMM) 1.9 Absolute Monocytes (0.10 - 0.60 /CUMM) 0.6 Absolute Eosinophils (0.0 - 0.7 /CUMM) 0.2 Absolute Basophils (0.0 - 0.2 /CUMM) 0 Urines Urinalysis MOD H Urine Color (YEL,AMB,STR) STRAW Urine Clarity (CLEAR) CLEAR Urine pH (5.0 - 8.0) 7.0 Ur Specific [place] (1.001 - 1.035) 1.015 Urine Protein (NEG,<30 MG/DL) NEG Urine Ketones (NEG) NEG Urine Nitrite (NEG) POS H Urine Bilirubin (NEG) NEG Urine Urobilinogen (0.1 - 1.0 EU/dl) 0.2 Ur Leukocyte Esterase (NEG) TRACE H Ur Microscopic SEDIMENT EXAMINED Urine RBC (0 - 5 /HPF) 5-10 H Urine WBC (0 - 2 /HPF) 5-10 H Ur Epithelial Cells (NONE,FEW) FEW Urine Bacteria (NEG/NONE) MANY H Urine Mucus (FEW,NONE) FEW Urine Hemoglobin (NEG) TRACE-INTACT Urine Glucose (N MG/DL) NEG GI series: IMPRESSION: 1. Small hiatal hernia, containing the gastric pouch. 2. There may be a subtle nonobstructing Schatzki ring with slight esophageal irregularity at the GE junction, raising the suspicion of subtle esophagitis. No ulceration or mass is seen. 3. No evidence of gastric outlet obstruction. EKG: pending. A/P: 72-year-old female with past medical history significant for gastric lap band 12 years ago, depression, lichen planus admitted with intractable nausea, vomiting, epigastric discomfort and some diarrhea. Patient admitted to medicine. She will be hydrated with IV fluids and symptomatic treatment with antiemetics after making sure EKG is normal including QTC. Please consult bariatric surgery Dr. Miller. Please consult GI Dr. Parkinson. Patient has had endoscopy [address] Parkinson which does show some evidence of gastritis/hiatal hernia. GI series is also consistent with esophagitis. IV PPI should be started. Hold prednisone, no NSAIDs. Nothing by mouth with IV fluids. Pharmacologic DVT plexus. Patient is a full code Jonah Paula 06/28/17 1851: Resident Review Statement Resident Statement: examined this patient, discussed with internal controls analyst, agreed with internal controls analyst, discussed with family, reviewed EMR data (avail), discussed with case mgmt, reviewed images, amended to note Other Findings: 72-year-old woman with history of gastric lap band in 2006, history of depression, lichen planus presented to [facility] ED on 06/26/2017 with nausea, vomiting and diarrhea, underwent gastric band deflation, and was discharged on antiemetics. Patient felt better the following day, but subsequently started spacing the same symptoms again much worse, that prompted her current visit to the ED. She continues to have nausea, and burning epigastric pain. She has also reported episodes of diarrhea. Patient was started on prednisone for lichen planus 2 months ago. Patient denies use of any NSAIDs in the recent past. The CAT scan of the abdomen on 06/26/2017 showed a moderate-sized hiatal hernia and colonic diverticulosis. Upper GI series done today showed hiatal hernia again, nonobstructing Schatzki ring and findings suspicious for subtle esophagitis. At this point, he would admit the patient to general medicine floor. We will start IV PPI, IV antiemetics, IV fluids and keep her nothing by mouth. We will also request GI as well as bariatric surgery evaluation. In the meantime, hold prednisone, no NSAIDs. DVT prophylaxis. Full code.
--- NOTE | 2017-06-28 15:54 | PN- Student ---
Subjective Subjective: Mrs. Ivey is a 72 year old female with a past medical history significant for lichen planus, DM, and obesity s/p lap band surgery presented to the ED with N/V , weakness and substernal/epigastric pain. She describes her chest pain/ epigastric pain as "electric pins" and states that the pain is mostly constant. She has been experiencing these symptoms since Wednesday06/26/17 and presented to the ED that day. She states that she was given different medications at that visit and felt better that evening and was discharged around 11 pm 06/26/17. She also had her lap band deflated in the ED that day. She adds that she felt better Wednesday and woke up today (Wednesday06/28/17) with the chest pain, and n/v returning. She also reports having had 6-7 episodes of non-bloody loose stools on Wednesday. She has been on a liquid diet since being seen in the ED. Changing position does not alleviate or exacerbate her pain. She tried taking Tums anti- acid however this did not alleviate the pain. She endorses night sweats, chills, and a cough at night. She denies blood in her vomit, SOB, exposure to sick contacts or recent travel. 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 PMHx: Lichen Planus (2007), DM, Obesity s/p lap band Colonoscopy (2013)-polyps Upper endoscopy (2013) SurgicalHx: Lap band (2005) Social: , previous smoker (quit 30 years ago), denies ETOH or rec drug use. FamHx: Sister- cardiovascular event- OH Objective Objective: Laboratory Tests 06/28/17 0530: Anion Gap 13, Estimated GFR > 60, BUN/Creatinine Ratio 16.0, Glucose 112 H, Hemoglobin A1c Pending, Calcium 9.5, Magnesium 1.9, Total Bilirubin 0.9, AST 21, ALT 24, Alkaline Phosphatase 61, Troponin I < 0.01, Total Protein 7.2, Albumin 4.3, Globulin 2.9, Albumin/Globulin Ratio 1.5, Lipase 118, CBC w Diff NO MAN DIFF REQ, RBC 4.78, MCV 86.5, MCH 28.9, MCHC 33.3, RDW 13.8, MPV 9.1, Gran % 64.9, Lymphocytes % 24.5, Monocytes % 7.6, Eosinophils % 2.5, Basophils % 0.5, Absolute Granulocytes 4.9, Absolute Lymphocytes 1.9, Absolute Monocytes 0.6, Absolute Eosinophils 0.2, Absolute Basophils 0, Urinalysis MOD H, Urine Color STRAW, Urine Clarity CLEAR, Urine pH 7.0, Ur Specific [place] 1.015, Urine Protein NEG, Urine Ketones NEG, Urine Nitrite POS H, Urine Bilirubin NEG, Urine Urobilinogen 0.2, Ur Leukocyte Esterase TRACE H, Ur Microscopic SEDIMENT EXAMINED, Urine RBC 5-10 H, Urine WBC 5-10 H, Ur Epithelial Cells FEW, Urine Bacteria MANY H, Urine Mucus FEW, Urine Hemoglobin TRACE-INTACT, Urine Glucose NEG Microbiology 06/28 154 STOOL: Clostridium difficile Toxin A & B - COLB 06/28 154 STOOL: Stool Culture - COLB Current Medications Sig/Astrid Start time Last Medication Dose Stop Time Status Admin Enoxaparin Sodium 40 MG DAILY 06/29 0900 UNVr (Lovenox) Pantoprazole Sodium 40 MG DAILY 06/29 0900 AC (Protonix) Lidocaine/Diphenhydr/ 10 ML TID PRN 06/28 1615 CAN Alum/Mg/Simeth (BLM) Acetaminophen 650 MG Q6P PRN 06/28 1545 AC (Tylenol) Dextrose/Sodium 1,000 ML .[id number] 06/28 1545 AC 06/28 Chloride 06/29 1824 1641 (D5-Normal Saline) Prochlorperazine 25 MG Q6P PRN 06/28 1545 AC (Compazine 25 MG Suppository) Vital Signs Date Time Temp Pulse Resp B/P B/P Pulse O2 O2 Flow FiO2 Mean Ox Delivery Rate 06/28 1423 98.7 71 18 140/80 100 Room Air 06/28 1144 97.6 70 18 161/89 100 Room Air 06/28 1000 97.0 88 18 158/86 96 Room Air 06/28 0732 97.0 80 16 160/76 100 Room Air 06/28 0649 96.9 101 18 155/90 97 Room Air 06/28 0518 96.7 107 22 159/74 98 Room Air X-Ray Upper GI series 06/28/17 Impressions: 1. small hiatal hernia containing gastric pouch 2. subtle non-obstructing schatzki ring with slight esophageal irregularity at GE junction, possibly subtle esophagitis 3. no evidence of gastric outlet obstruction Physical Exam Gen apperance: No acute distress, cooperative, AOx3 CV: reg rhythym and rate, normal s1&s2 pulm: lungs clear to ausculatation no evidence of rales, rubs, ronchi or wheeze abd: normal bowel sounds, soft, non-tender extremities: no peripheral edema, peripheral pulses 2+ Assessment/Plan Assessment: Mrs. Ivey is a 72 year old female with a past medical history significant for lichen panus, DM, and obesity s/p lap band surgery presented to the ED today with chest/epigastric pain and n/v. These symptoms began on Monday 06/26 for which she presented to the ED that day for. Her lap band was deflated and was given medication in the ED which treated her symptoms at the time and was discharged around 11 pm that evening. She reports feeling better the following day, however she does report having 6-7 episodes of non-bloody loose stools on that day. Today (wednesday06/28/17) the symptoms returned. She describes the pain like "electric pins" and that it is mostly constant but occasionally comes and goes. Tums, repositioning has not made the pain go away. She has been on a liquid diet since Wednesday. She reports having chills and night sweats. Plan: Problem List: 1. Epigastric/chest pain 2. Lichen planus 3. Chronic medical conditions #Epigastric/chest pain: Patient reports having epigastric/lower chest pain which started on Wednesday which improved that evening and all Wednesday, however returned on Wednesday. She has a family history significant for a sister that had an OH. On upper GI series it was discovered that she does have a hiatal hernia and irregularity at the GE junction. She reports that she had an upper endoscopy with Dr. Wang in 2013. She is currently on Prednisone for Lichen panus which may be contributing to her pain and potenitally is an episode of Gastritis. It is also possible this could be due to an underlying infection such as C. Diff or H. Pylori although she does not exhibit leukocytosis or fever. With her strong family history of cardiovascular event, she should be worked up for a possible inferior wall OH which can mimic symptoms of acute gastritis. She also did not have any obvious findings on physical examination. -EKG -Troponin and CKMB -Halt prednisone and any NSAIDs -stool culture and c. diff testing -h. pylori antigen testing/breath test -consider PPI therapy -NPO -consult Dr. Wang #Lichen panus: Patient reports being diagnosed 10 years ago and currently recieving prednisone for treatment. -Due to patients symptoms halt prednisone -continue to monitor #chronic medical conditions -continue medications as prescribed NPO full code
[2017-06-28 20:31] VITALS: BP 90/54
[2017-06-28 22:27] VITALS: BP 96/60
[2017-06-29 00:18] VITALS: BP 98/64
[2017-06-29 06:00] VITALS: BP 94/62
--- NOTE | 2017-06-29 07:21 | PN- Housestaff ---
See Addendum Subjective Follow-up For: GERD, esophagitis Subjective: No overnight events. Patient feels much better this morning. She still has some mild burning in her chest and has no appetite. No nausea, vomiting, or diarrhea last night. Review of Systems Constitutional: Reports: no symptoms. EENTM: Reports: no symptoms. Cardiovascular: Reports: no symptoms. Respiratory: Reports: no symptoms. Gastrointestinal: Reports: see HPI. Genitourinary: Reports: no symptoms. Musculoskeletal: Reports: no symptoms. Skin: Reports: no symptoms. Neurological/Psychological: Reports: no symptoms. Hematologic/Endocrine: Reports: no symptoms. Immunologic/Allergic: Reports: no symptoms. Objective Last 24 Hrs of Vital Signs/I&O Vital Signs Date Time Temp Pulse Resp B/P B/P Pulse O2 O2 Flow FiO2 Mean Ox Delivery Rate 06/29 0600 98.9 61 16 94/62 95 Room Air 06/29 0018 99.2 57 16 98/64 97 Room Air 06/28 2227 96/60 06/28 2031 99.2 71 11 90/54 96 Room Air 06/28 1812 99.7 66 18 142/84 99 Room Air 06/28 1423 98.7 71 18 140/80 100 Room Air 06/28 1144 97.6 70 18 161/89 100 Room Air 06/28 1000 97.0 88 18 158/86 96 Room Air 06/28 0732 97.0 80 16 160/76 100 Room Air Intake & Output 06/29 0800 06/29 0000 06/28 1600 Intake Total 1650 Output Total Balance 1650 Intake, IV 1650 Patient 53.581 kg 53.524 kg Weight Weight Bed scale Reported by Patient Measurement Method Physical Exam General Appearance: Alert, Oriented X3, Cooperative, No Acute Distress Cardiovascular: Regular Rate, Normal S1, Normal S2 Lungs: Clear to Auscultation Abdomen: Normal Bowel Sounds, Soft, No Tenderness Extremities: No Edema, Normal Pulses, No Tenderness/Swelling Current Medications: Current Medications Sig/Astrid Start time Last Medication Dose Route Stop Time Status Admin Acetaminophen 650 MG Q6P PRN 06/28 1545 AC PO Acetaminophen 0 .STK-MED ONE 06/28 0848 DC IV Acetaminophen 1,000 MG ONCE ONE 06/28 0845 DC 06/28 IV 06/28 0846 0903 Dextrose/Sodium 1,000 ML .[id number] 06/28 1545 AC 06/29 Chloride IV 06/29 1824 0531 Enoxaparin Sodium 40 MG DAILY 06/29 0900 AC SC Escitalopram Oxalate 10 MG 0800 06/29 0800 AC PO Famotidine 0 .STK-MED ONE 06/28 1822 DC IV Famotidine 20 MG ONCE ONE 06/28 1800 DC 06/28 IV 06/28 1801 1828 Lidocaine/Diphenhydr/ 10 ML TID PRN 06/28 1615 CAN Alum/Mg/Simeth PO Metoclopramide HCl 0 .STK-MED ONE 06/28 0734 DC .ROUTE Pantoprazole Sodium 40 MG DAILY 06/29 0900 AC IV Prochlorperazine 10 MG Q6P PRN 06/28 1930 AC IV Prochlorperazine 25 MG Q6P PRN 06/28 1545 DC NM Sodium Chloride 500 ML BOLUS ONE 06/28 2245 DC 06/28 IV 06/28 2344 2257 Sodium Chloride 1,000 ML BOLUS ONE 06/28 2045 DC 06/28 IV 06/28 2144 2053 Last 24 Hrs of Lab/Theo Results Last 24 Hrs of Labs/Mics: Laboratory Tests 06/28/17 2330: Troponin I < 0.01 Microbiology 06/28 1546 STOOL: Clostridium difficile Toxin A & B - COLB 06/28 154 STOOL: Stool Culture - COLB Assessment/Plan Assessment: Ms. Ivey is a 72-year-old female with past medical history of diabetes mellitus, GERD, obesity status post [place] [address] Miller, lichen planus on prednisone followed by Dr. Talavera, and esophageal spasms followed by Dr. Parkinson who presented with nausea and vomiting. Problem list: 1. Esophagitis 2. Chest pain syndrome 3. Acute diarrhea #Esophagitis: Patient presents with nausea and vomiting with history of GERD and previous endoscopy showing esophagitis/gastritis. Upper GI series this time shows esophagitis as well. Most likely outside this is due to GERD. This morning she is improved. -Nothing by mouth -IV fluid hydration -Appreciate gastroenterology recommendations -Antinausea medications -Endoscopy today #Chest pain syndrome: The patient is complaining of chest/upper epigastric pain most likely consistent with the esophagitis/gastritis. Troponins were negative. -Continue to monitor #Acute diarrhea: Patient was also experiencing 67 nonbloody loose stools per day. Unclear etiology, may be secondary to the stress of the esophagitis. She has not had further episodes of diarrhea. -Send C. difficile/stool culture -Antidiarrheals if persistent without evidence of infection #Chronic medical problems: -Continue other home medications DVT prophylaxis with enoxaparin Nothing by mouth Full code Problem List: 1. Esophagitis Pain Ratin Pain Location: no Pain Goal: Remain pain free Pain Plan: see a/p Tomorrow's Labs & Rationales: no
[2017-06-29 09:30] LABS: ABSOLUTE BASOPHIL COUNT 0 /CUMM (0.0-0.2); ABSOLUTE EOSINOPHIL COUNT 0.1 /CUMM (0.0-0.7); ABSOLUTE GRANULOCYTE CT 4.9 /CUMM (1.4-6.5); BASOPHIL % 0.4 % (0.0-2.0); MEAN CORPUSCULAR HGB 28.8 PG (27.0-31.0); MEAN CORPUSCULAR HGB CONC 33.3 G/DL (33.0-37.0)
[2017-06-29 09:55] LABS: ABSOLUTE LYMPH COUNT 1.7 /CUMM (1.2-3.4); ABSOLUTE MONOCYTE COUNT 0.6 /CUMM (0.10-0.60); EOSINOPHIL % 0.8 % (0-5); GRANULOCYTE % 67.1 % (42.2-75.2); MEAN CORPUSCULAR VOLUME 86.3 FL (81.0-99.0); MEAN PLATELET VOLUME 9.8 FL (7.4-10.4); PLATELET COUNT 180 /CUMM (130-400); WHITE BLOOD CELL COUNT 7.4 /CUMM (4.8-10.8)
[2017-06-29 09:59] LABS: HEMATOCRIT 36.2 % (37-47)
--- NOTE | 2017-06-29 13:01 | Cons- Gastroenterology ---
General Information and HPI Consulting Request Date of Consult: 06/29/17 Requested By: Kristian JACKSON,Nadine Reason for Consult: I was called to the hospitalist service this morning to assess "esophagitis" Source of Information: patient, old records Exam Limitations: no limitations History of Present Illness: 72-year-old female, DM, lichen planus, anxiety, depression, osteopenia, hx bronchitis, ATIF, hx GERD, s/p gastric lap band (06/2005) by Dr. Shahid Lutz at [facility] in [place], followed by shari almanzar in 2006. There is no pertinent family history, except paternal grandmother- , gastric cancer & F had PUD. Last colonoscopy to the cecum (02/17/11): mild left-sided diverticulae and hypertrophied anal papillae. [By dates, the patient is due for followup surveillance colonoscopy (02/2021)]. Previous upper GI series (09/21/11 ): s/p gastric lap band, small hiatal hernia and positive GERD to the aortic arch. The patient refused EGD then, as her upper GI symptoms resolved after Nexium 40 mg daily. The patient's maximum weight was 238 pounds pre-gastric lap band. She is 5' 2". When last seen in my office (08/23/12) the patient was 115 pounds with a BMI of 21. Since last in my office, the patient had her gastric lap band deflated in 09/[address] Shahid Lutz, with improvement of her symptoms. In fact, she has stopped her Nexium then, as she was feeling better. 10/18/12: EGD to D3 with bxs- ASSESSMENT: 1. Normal vocal cords except for a questionable squamous papilloma versus glycogen deposit at the arytenoids, left intact. 2. Distal erosive esophagitis with linear erosion at the Z-line at 33 cm, biopsied x2: (Specimen D; bxs- mild to moderate rx change, 0-10 eos/HPF). 3. 2 cm hiatal hernia pouch from 33-35 cm, without any Isaiah erosions. 4. s/p gastric lap band with increased tone at the gastric cardia on retroflexion. 5. 5 mm sessile probable inflammatory gastric polyp in the fundus, removed via cold biopsy: (Specimen C; bxs- benign FGP, HP-neg). No gastric atrophy seen. 6. Slightly thickened pre-pyloric fold, biopsied: (Specimen B; bxs- rx gastropathy with mild chronic inflammation, HP negative), without gastric outlet obstruction. 7. Small marixa-ampullary diverticulum with normal ampulla. 8. Random small bowel biopsy x4 of normal-appearing second and third portions of the duodenum: (Specimen A- doubt malabsorption and/or celiac sprue; bxs- neg) . In view of the distal esophageal erosions, I told the pt to resume Nexium 40 mg each morning, 1/2 hour before breakfast, post EGD. The patient was advised to see ENT regarding the questionable squamous papilloma vs. glycogen deposit at the arytenoids. The patient claimed she saw ENT then with a negative workup. The patient was seen in the [facility] 06/26/17 by the bariatric department for abdominal pain, nausea, vomiting, and diarrhea, that started that morning. She had severe diffuse cramping abdominal pain, without any fevers. She was hypotensive in the ER. Labs and CT were performed in the ER. She was treated with Pepcid, IV fluids, and antiemetics. She had further evaluation by the bariatric department. At that point, she was feeling better and was tolerating po fluids. Her abdominal pain nausea and vomiting had resolved. Her blood pressure normalized. 06/26/17: EKG- Sinus jackelyn @ 58, normal axis, normal interval, no acute ischemic change. 06/26/17: CT ABD & PELVIS W IV CONTRAST- IMPRESSION: Patchy groundglass airspace disease in the bilateral lower lobe, right more than left could represent pneumonia. Clinical correlation is suggested. A moderate size hiatal hernia which contains the proximal stomach above the gastric band. Colon diverticulosis without evidence of acute diverticulitis. The patient had 2 cc gastric band fluid removed in the ER. The port was palpated in the right mid abdominal region without difficulty. Patient was discharged to home, with plans to follow-up with Dr. Luis A Lutz this week. The patient returned to the [facility] 06/28/17, experiencing recurrent nausea and "electrical" chest pain in the center of her chest, nonexertional in nature. She also had 6 loose bowel movements. There were no fevers or chills. She denied any recent sick contacts, travel, or a foods. She was recently started on a course of prednisone taper for the lichen planus. She was also on a Z-Sonny per med list, but the pt adamantly denied this. She is an ex-15 pk yr cigarette smoker, D/C 1987. She denied any EtOH or illicit drug use. She was not on any aspirin or NSAIDs. She denied any cough, oral thrush, odynophagia, dysphagia, hematemesis, melena, or rectal bleeding. Minimal chronic early satiety for years, attributed to gastric band. Aside from the transient loose stools, she denied any additional change in bowel habits. 06/28/17: UGI SERIES- 1. Small hiatal hernia, containing the gastric pouch. 2. There may be a subtle nonobstructing Schatzki ring with slight esophageal irregularity at the GE junction, raising the suspicion of subtle esophagitis. No ulceration or mass is seen. 3. No evidence of gastric outlet obstruction. 06/28/17: EKG- not in computer. The patient is currently NPO on IV D5 1/2 NS @ 75 cc/hr & IV Protonix 40 mg daily. She was also given Compazine as needed. She was on Lexapro & DVT prophylaxis with Lovenox. She was awaiting bariatric input. She had been on outpatient PPI for years (according to med list, Omeprazole, but pt claimed she was on Nexium). *She had normal CBC, LFTs, lipase, electrolytes, & troponin. Allergies/Medications Allergies: Coded Allergies: adhesive tape (Intermediate, RASH 06/28/17) Penicillins (UNKNOWN 06/28/17) Uncoded Allergies: MOST NARCOTICS (Mild, NAUSEA 06/28/17) Home Med List: Azithromycin (Zithromax Z-Sonny) 250 MG CAP 1 DP PO AD OM 2 the first day followed by 1 for days 2-5 LIDO/MAAL/TISH (Magic Mouthwash) (Lido-Visc2% 30ML/[id number],MAALOX 120ml) 270 ML YEHUDA 10 ML PO TID PRN Mouth Pain EQUAL PARTS Metoclopramide HCl (Reglan) 10 MG TABLET 1 TAB PO Q6-PRN PRN nausea/vomiting 30 minutes before meals and bedtime Omeprazole 40 MG CAPSULE.DR 1 CAP PO DAILY GERD Prednisone 10 MG TAB 1 TAB PO AD INFLAMMATION 3 TABS TWICE A DAY- DAY1,DAY2 2 TABS TWICE A DAY- DAY3,DAY4 3 TABS DAY 5 2 TABS DAY 6 Robitussin AC (Guaifenesin-Codeine Syrup) 10 ML UDC 5 ML PO Q6 COUGH Current Medications: Current Medications Sig/Astrid Start time Last Medication Dose Route Stop Time Status Admin Acetaminophen 650 MG Q6P PRN 06/28 1545 AC PO Chlorhexidine 1 GM .STK-MED ONE 06/29 1347 DC Gluconate TOP 06/29 1348 Dextrose 25 GM ONCE ONE 06/29 0930 DC 06/29 IV 06/29 0931 1019 Dextrose/Sodium 1,000 ML Q13H 06/29 1100 AC Chloride IV Dextrose/Sodium 1,000 ML .[id number] 06/28 1545 DC 06/29 Chloride IV 06/29 1824 0531 Enoxaparin Sodium 40 MG DAILY 06/29 0900 AC 06/29 SC 1017 Escitalopram Oxalate 10 MG 0800 06/29 0800 AC 06/29 PO 1019 Famotidine 0 .STK-MED ONE 06/28 1822 DC IV Famotidine 20 MG ONCE ONE 06/28 1800 DC 06/28 IV 06/28 1801 1828 Lidocaine/Diphenhydr/ 10 ML TID PRN 06/28 1615 CAN Alum/Mg/Simeth PO Pantoprazole Sodium 40 MG DAILY 06/29 0900 AC 06/29 IV 1018 Prochlorperazine 10 MG Q6P PRN 06/28 1930 AC IV Prochlorperazine 25 MG Q6P PRN 06/28 1545 DC IN Sodium Chloride 500 ML BOLUS ONE 06/28 2245 DC 06/28 IV 06/28 2344 2257 Sodium Chloride 1,000 ML BOLUS ONE 06/28 2045 DC 06/28 IV 06/28 214 205 Past History Travel History Traveled to [place] past 21 day No Medical History Blood Transfusion Hx: No Neurological: NONE EENT: NONE Cardiovascular: NONE Respiratory: bronchitis, obstructive sleep apnea Gastrointestinal: GERD, hiatal hernia, LAPBAND Hepatic: NONE Renal: NONE Musculoskeletal: OSTEOPENIA Psychiatric: anxiety, depression Endocrine: DIABETES TYPE II Blood Disorders: anemia Cancer(s): NONE 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 , Age 82; Cause: Bladder cancer. MOTHER (OBS). Age 94. Psychosocial History Where Do You Live? Home Who Do You Live With? spouse Services at Home: None Primary Language: Greek Smoking Status: Former Smoker ETOH Use: denies use Illicit Drug Use: denies illicit drug use Living Will? no Power of Rehabilitation Supervisor/HCP? no Other Social History: . 4 kids (3dtr & 1 son)- [employer], 1 of the dtrs with sarcoid, another with fibromyalgia. Ex-15 pk yr cigarette smoker. No EtOH or illicit drugs. Retired from [employer]. Functional Ability ADLs Independent: dressing, eating, toileting, bathing. Ambulation: independent IADLs Independent: shopping, housework, finances, food prep, telephone, transportation , medication admin. Employment History Employment: Retired Profession/Employer: retired from [employer] Review of Systems Review of Systems: Full 14 point ROS otherwise noncontributory and as per HPI. Constitutional: Reports: see HPI. EENTM: Reports: no symptoms. Cardiovascular: Reports: see HPI. Respiratory: Reports: no symptoms. GI: Reports: see HPI. Genitourinary: Reports: no symptoms. Musculoskeletal: Reports: no symptoms. Skin: Reports: see HPI. Neurological/Psychological: Reports: stable anxiety and depression on Lexapro Hematologic/Endocrine: Reports: no symptoms. Immunologic/Allergic: Reports: no symptoms. All Other Systems: Reviewed and Negative Exam & Diagnostic Data Vital Signs and I&O Vital Signs Date Time Temp Pulse Resp B/P B/P Pulse O2 O2 Flow FiO2 Mean Ox Delivery Rate 06/29 0600 98.9 61 16 94/62 95 Room Air 06/29 0018 99.2 57 16 98/64 97 Room Air 06/28 2227 96/60 06/28 2031 99.2 71 11 90/54 96 Room Air 06/28 1812 99.7 66 18 142/84 99 Room Air 06/28 1423 98.7 71 18 140/80 100 Room Air Intake & Output 06/29 1600 06/29 0400 06/28 1600 06/28 0400 06/27 1600 06/27 0400 Intake Total 600 1650 1000 Output Total 300 Balance 600 1650 700 Intake, IV 600 1650 1000 Output, Urine 300 Patient 118 lb 118 lb Weight Weight Bed scale Reported by Patient Measurement Method Physical Exam: Well-developed, well-nourished female, in no apparent distress. Sclera anicteric. Conjunctiva pink. Oropharynx clear. No oral thrush. No aphthous ulcers. There is no adenopathy, thyromegaly, or JVD. No peripheral stigmata of inflammatory bowel disease or chronic liver disease on exam. No spiders on the anterior chest wall. No CVA tenderness. No spine tenderness. Lungs: clear to A&P, with slight decreased pressors at the bases B/L. No wheezing, rales, or rhonchi. No CWT. Breast and pelvic exams : API. Heart exam: regular rate rhythm, S1 and S2, without any murmur. Abdominal exam: normal bowel sounds, soft belly, nontender, without guarding or rebound. Palpable gastric port in right mid abdomen, otherwise no mass. No organomegaly. No fluid shift. Negative Arce sign. No pulsatile mass. No epigastric bruit. Digital rectal exam: deferred at present (API). Extremities: without C, C, or E. No palpable cords. Lichen planus UE B/L. Otherwise, no rash. No arthropathy. Old tattoos. No palmar erythema. No Dupuytren's contractures. Distal pulses 2+ bilaterally. DTRs 2+ bilaterally. Alert and oriented x 3. Motor 5/5 B/L. No tremor. No asterixis. Results Pertinent Lab Results: Laboratory Tests 06/29 06/28 0730 2330 Chemistry Sodium (137 - 145 mmol/L) 142 Potassium (3.5 - 5.1 mmol/L) 3.7 Chloride (98 - 107 mmol/L) 107 Carbon Dioxide (22 - 30 mmol/L) 26 Anion Gap (5 - 16) 8 BUN (7 - 17 mg/dL) 8 Creatinine (0.5 - 1.0 mg/dL) 0.5 Estimated GFR (>60 ml/min) > 60 BUN/Creatinine Ratio (7 - 25 %) 16.0 Troponin I (< 0.11 ng/ml) < 0.01 Hematology CBC w Diff NO MAN DIFF REQ WBC (4.8 - 10.8 /CUMM) 7.4 RBC (4.20 - 5.40 /CUMM) 4.20 Hgb (12.0 - 16.0 G/DL) 12.1 Hct (37 - 47 %) 36.2 L MCV (81.0 - 99.0 FL) 86.3 MCH (27.0 - 31.0 PG) 28.8 MCHC (33.0 - 37.0 G/DL) 33.3 RDW (11.5 - 14.5 %) 13.0 Plt Count (130 - 400 /CUMM) 180 MPV (7.4 - 10.4 FL) 9.8 Gran % (42.2 - 75.2 %) 67.1 Lymphocytes % (20.5 - 51.1 %) 22.9 Monocytes % (1.7 - 9.3 %) 8.8 Eosinophils % (0 - 5 %) 0.8 Basophils % (0.0 - 2.0 %) 0.4 Absolute Granulocytes (1.4 - 6.5 /CUMM) 4.9 Absolute Lymphocytes (1.2 - 3.4 /CUMM) 1.7 Absolute Monocytes (0.10 - 0.60 /CUMM) 0.6 Absolute Eosinophils (0.0 - 0.7 /CUMM) 0.1 Absolute Basophils (0.0 - 0.2 /CUMM) 0 04/16 0530 Chemistry Sodium (137 - 145 mmol/L) 145 Potassium (3.5 - 5.1 mmol/L) 3.8 Chloride (98 - 107 mmol/L) 104 Carbon Dioxide (22 - 30 mmol/L) 28 Anion Gap (5 - 16) 13 BUN (7 - 17 mg/dL) 8 Creatinine (0.5 - 1.0 mg/dL) 0.5 Estimated GFR (>60 ml/min) > 60 BUN/Creatinine Ratio (7 - 25 %) 16.0 Glucose (65 - 99 mg/dL) 112 H Hemoglobin A1c (4.2 - 5.8 %) 5.8 Calcium (8.4 - 10.2 mg/dL) 9.5 Magnesium (1.6 - 2.3 mg/dL) 1.9 Total Bilirubin (0.2 - 1.3 mg/dL) 0.9 AST (14 - 36 U/L) 21 ALT (9 - 52 U/L) 24 Alkaline Phosphatase (<127 U/L) 61 Troponin I (< 0.11 ng/ml) < 0.01 Total Protein (6.3 - 8.2 g/dL) 7.2 Albumin (3.5 - 5.0 g/dL) 4.3 Globulin (1.9 - 4.2 gm/dL) 2.9 Albumin/Globulin Ratio (1.1 - 2.2 %) 1.5 Lipase (23 - 300 U/L) 118 Hematology CBC w Diff NO MAN DIFF REQ WBC (4.8 - 10.8 /CUMM) 7.6 RBC (4.20 - 5.40 /CUMM) 4.78 Hgb (12.0 - 16.0 G/DL) 13.8 Hct (37 - 47 %) 41.4 MCV (81.0 - 99.0 FL) 86.5 MCH (27.0 - 31.0 PG) 28.9 MCHC (33.0 - 37.0 G/DL) 33.3 RDW (11.5 - 14.5 %) 13.8 Plt Count (130 - 400 /CUMM) 208 MPV (7.4 - 10.4 FL) 9.1 Gran % (42.2 - 75.2 %) 64.9 Lymphocytes % (20.5 - 51.1 %) 24.5 Monocytes % (1.7 - 9.3 %) 7.6 Eosinophils % (0 - 5 %) 2.5 Basophils % (0.0 - 2.0 %) 0.5 Absolute Granulocytes (1.4 - 6.5 /CUMM) 4.9 Absolute Lymphocytes (1.2 - 3.4 /CUMM) 1.9 Absolute Monocytes (0.10 - 0.60 /CUMM) 0.6 Absolute Eosinophils (0.0 - 0.7 /CUMM) 0.2 Absolute Basophils (0.0 - 0.2 /CUMM) 0 Urines Urinalysis MOD H Urine Color (YEL,AMB,STR) STRAW Urine Clarity (CLEAR) CLEAR Urine pH (5.0 - 8.0) 7.0 Ur Specific Effort (1.001 - 1.035) 1.015 Urine Protein (NEG,<30 MG/DL) NEG Urine Ketones (NEG) NEG Urine Nitrite (NEG) POS H Urine Bilirubin (NEG) NEG Urine Urobilinogen (0.1 - 1.0 EU/dl) 0.2 Ur Leukocyte Esterase (NEG) TRACE H Ur Microscopic SEDIMENT EXAMINED Urine RBC (0 - 5 /HPF) 5-10 H Urine WBC (0 - 2 /HPF) 5-10 H Ur Epithelial Cells (NONE,FEW) FEW Urine Bacteria (NEG/NONE) MANY H Urine Mucus (FEW,NONE) FEW Urine Hemoglobin (NEG) TRACE-INTACT Urine Glucose (N MG/DL) NEG Imaging/Other Studies: 06/26/17: EKG- Sinus jackelyn @ 58, normal axis, normal interval, no acute ischemic change. 06/26/17: CT ABD & PELVIS W IV CONTRAST- IMPRESSION: Patchy groundglass airspace disease in the bilateral lower lobe, right more than left could represent pneumonia. Clinical correlation is suggested. A moderate size hiatal hernia which contains the proximal stomach above the gastric band. Colon diverticulosis without evidence of acute diverticulitis. 06/28/17: UGI SERIES- 1. Small hiatal hernia, containing the gastric pouch. 2. There may be a subtle nonobstructing Schatzki ring with slight esophageal irregularity at the GE junction, raising the suspicion of subtle esophagitis. No ulceration or mass is seen. 3. No evidence of gastric outlet obstruction. 06/28/17: EKG- not in computer. Assessment/Plan Assessment/Recommendations: 72-year-old female, DM, lichen planus, anxiety, depression, osteopenia, hx bronchitis, ATIF, hx GERD, s/p gastric lap band (06/2005) by Dr. Shahid Lutz at [facility] in [place], followed by shari almanzar in 2006. There is no pertinent family history, except paternal grandmother- , gastric cancer & F had PUD. Last colonoscopy to the cecum (02/17/11): mild left-sided diverticulae and hypertrophied anal papillae. [By dates, the patient is due for followup surveillance colonoscopy (02/2021)]. Previous upper GI series (09/21/11 ): s/p gastric lap band, small hiatal hernia and positive GERD to the aortic arch. The patient refused EGD then, as her upper GI symptoms resolved after Nexium 40 mg daily. The patient's maximum weight was 238 pounds pre-gastric lap band. She is 5' 2". When last seen in my office (08/23/12) the patient was 115 pounds with a BMI of 21. Since last in my office, the patient had her gastric lap band deflated in 09/[address] Shahid Lutz, with improvement of her symptoms. In fact, she has stopped her Nexium then, as she was feeling better. 10/18/12: EGD to D3 with bxs- ASSESSMENT: 1. Normal vocal cords except for a questionable squamous papilloma versus glycogen deposit at the arytenoids, left intact. 2. Distal erosive esophagitis with linear erosion at the Z-line at 33 cm, biopsied x2: (Specimen D; bxs- mild to moderate rx change, 0-10 eos/HPF). 3. 2 cm hiatal hernia pouch from 33-35 cm, without any Isaiah erosions. 4. s/p gastric lap band with increased tone at the gastric cardia on retroflexion. 5. 5 mm sessile probable inflammatory gastric polyp in the fundus, removed via cold biopsy: (Specimen C; bxs- benign FGP, HP-neg). No gastric atrophy seen. 6. Slightly thickened pre-pyloric fold, biopsied: (Specimen B; bxs- rx gastropathy with mild chronic inflammation, HP negative), without gastric outlet obstruction. 7. Small marixa-ampullary diverticulum with normal ampulla. 8. Random small bowel biopsy x4 of normal-appearing second and third portions of the duodenum: (Specimen A- doubt malabsorption and/or celiac sprue; bxs- neg) . In view of the distal esophageal erosions, I told the pt to resume Nexium 40 mg each morning, 1/2 hour before breakfast, post EGD. The patient was advised to see ENT regarding the questionable squamous papilloma vs. glycogen deposit at the arytenoids. The patient claimed she saw ENT then with a negative workup. The patient was seen in the [facility] 06/26/17 by the bariatric department for abdominal pain, nausea, vomiting, and diarrhea, that started that morning. She had severe diffuse cramping abdominal pain, without any fevers. She was hypotensive in the ER. Labs and CT were performed in the ER. She was treated with Pepcid, IV fluids, and antiemetics. She had further evaluation by the bariatric department. At that point, she was feeling better and was tolerating po fluids. Her abdominal pain nausea and vomiting had resolved. Her blood pressure normalized. 06/26/17: EKG- Sinus jackelyn @ 58, normal axis, normal interval, no acute ischemic change. 06/26/17: CT ABD & PELVIS W IV CONTRAST- IMPRESSION: Patchy groundglass airspace disease in the bilateral lower lobe, right more than left could represent pneumonia. Clinical correlation is suggested. A moderate size hiatal hernia which contains the proximal stomach above the gastric band. Colon diverticulosis without evidence of acute diverticulitis. The patient had 2 cc gastric band fluid removed in the ER. The port was palpated in the right mid abdominal region without difficulty. Patient was discharged to home, with plans to follow-up with Dr. Luis A Lutz this week. The patient returned to the [facility] 06/28/17, experiencing recurrent nausea and "electrical" chest pain in the center of her chest, nonexertional in nature. She also had 6 loose bowel movements. There were no fevers or chills. She denied any recent sick contacts, travel, or a foods. She was recently started on a course of prednisone taper for the lichen planus. She was also on a Z-Sonny per med list, but the pt adamantly denied this. She is an ex-15 pk yr cigarette smoker, D/C 1987. She denied any EtOH or illicit drug use. She was not on any aspirin or NSAIDs. She denied any cough, oral thrush, odynophagia, dysphagia, hematemesis, melena, or rectal bleeding. Minimal chronic early satiety for years, attributed to gastric band. Aside from the transient loose stools, she denied any additional change in bowel habits. 06/28/17: UGI SERIES- 1. Small hiatal hernia, containing the gastric pouch. 2. There may be a subtle nonobstructing Schatzki ring with slight esophageal irregularity at the GE junction, raising the suspicion of subtle esophagitis. No ulceration or mass is seen. 3. No evidence of gastric outlet obstruction. 06/28/17: EKG- not in computer. The patient is currently NPO on IV D5 1/2 NS @ 75 cc/hr & IV Protonix 40 mg daily. She was also given Compazine as needed. She was on Lexapro & DVT prophylaxis with Lovenox. She was awaiting bariatric input. She had been on outpatient PPI for years (according to med list, Omeprazole, but pt claimed she was on Nexium). *She had normal CBC, LFTs, lipase, electrolytes, & troponin. *As of 06/29/17, the patient's nausea and vomiting had resolved. She had atypical chest pain & mild GERD. Initial EKG was unremarkable. CT AP/UGI series as above. She had normal CBC, LFTs, lipase, electrolytes, & troponin. Rule out hiatal hernia. Rule out esophagitis. Rule out esophageal dysmotility, although the patient had no odynophagia or dysphagia. Rule out esophageal candidiasis, post prednisone. Rule out gastric band slippage and/or ulceration from this, although the band was deflated on 06/26/17. Doubt PUD. *SUGGEST- NPO. IVF. EGD today. Informed consent for the upper endoscopy is obtained from the patient after careful explanation of the risks & benefits. Continue IV PPI. Antiemetics as needed, although nausea and vomiting resolved. Await bariatric input. Consideration for outpatient esophageal manometry, if symptoms persist. If mild diarrhea persists, check stool C&S, Shiga toxin & C. difficile. As an aside, she is due for follow-up colonoscopy 02/2021 by dates, as per current average-risk for colon cancer screening guidelines. The above was discussed with the medical house staff and with Dr. Townsend. Problem List: 1. Hx of laparoscopic gastric banding 2. GERD (gastroesophageal reflux disease) 3. Hiatal hernia 4. Atypical chest pain Copies To: Kristian JACKSON,Nadine; Nelda JACKSON,Shahid Conner; Peter JACKSON,Kathleen; Stephanie JACKSON,Ulisses Shirley Consult Acknowledgment - Thank you for your consult request.
[2017-06-29] MEDS ORDERED: OMEPRAZOLE40 M1 PO (13:09)
--- NOTE | 2017-06-29 13:53 | PN- Student ---
Subjective Subjective: No overnight events. Patient reports feeling much better, adding that her epigastric pain has reduced to a 1 or 2 out of 10 on the pain scale. She also describes the pain now as more of an acid like feeling. She denies any n/v, chest palpitations, difficulty breathing, headache, jaw pain or pain raidating to either upper extremity. Objective Objective: Current Medications Sig/Astrid Start time Last Medication Dose Route Stop Time Status Admin Acetaminophen 650 MG Q6P PRN 06/28 1545 AC PO Dextrose 25 GM ONCE ONE 06/29 0930 DC 06/29 IV 06/29 0931 1019 Dextrose/Sodium 1,000 ML Q13H 06/29 1100 AC Chloride IV Dextrose/Sodium 1,000 ML .[id number] 06/28 1545 DC 06/29 Chloride IV 06/29 1824 0531 Enoxaparin Sodium 40 MG DAILY 06/29 0900 AC 06/29 SC 1017 Escitalopram Oxalate 10 MG 0800 06/29 0800 AC 06/29 PO 1019 Famotidine 0 .STK-MED ONE 06/28 1822 DC IV Famotidine 20 MG ONCE ONE 06/28 1800 DC 06/28 IV 06/28 1801 1828 Lidocaine/Diphenhydr/ 10 ML TID PRN 06/28 1615 CAN Alum/Mg/Simeth PO Pantoprazole Sodium 40 MG DAILY 06/29 0900 AC 06/29 IV 1018 Prochlorperazine 10 MG Q6P PRN 06/28 1930 AC IV Prochlorperazine 25 MG Q6P PRN 06/28 1545 DC CO Sodium Chloride 500 ML BOLUS ONE 06/28 2245 DC 06/28 IV 06/28 2344 2257 Sodium Chloride 1,000 ML BOLUS ONE 06/28 2045 DC 06/28 IV 06/28 2144 2053 Laboratory Tests 06/29/17 0730: Anion Gap 8, Estimated GFR > 60, BUN/Creatinine Ratio 16.0, CBC w Diff NO MAN DIFF REQ, RBC 4.20, MCV 86.3, MCH 28.8, MCHC 33.3, RDW 13.0, MPV 9.8, Gran % 67.1, Lymphocytes % 22.9, Monocytes % 8.8, Eosinophils % 0.8, Basophils % 0.4, Absolute Granulocytes 4.9, Absolute Lymphocytes 1.7, Absolute Monocytes 0.6, Absolute Eosinophils 0.1, Absolute Basophils 0 06/28/17 2330: Troponin I < 0.01 Microbiology 06/28 1546 STOOL: Clostridium difficile Toxin A & B - CAN Cancelled: SPECIMEN NOT RECEIVED IN LABORATORY 06/28 154 STOOL: Stool Culture - CAN Cancelled: SPECIMEN NOT RECEIVED IN LABORATORY Vital Signs Date Time Temp Pulse Resp B/P B/P Pulse O2 O2 Flow FiO2 Mean Ox Delivery Rate 06/29 0600 98.9 61 16 94/62 95 Room Air 06/29 0018 99.2 57 16 98/64 97 Room Air 06/28 2227 96/60 06/28 2031 99.2 71 11 90/54 96 Room Air 06/28 1812 99.7 66 18 142/84 99 Room Air 06/28 1423 98.7 71 18 140/80 100 Room Air Intake & Output 06/29 1600 06/29 0800 06/29 0000 Intake Total 600 1650 Output Total Balance 600 1650 Intake, IV 600 1650 Patient 118 lb 118 lb Weight Weight Bed scale Reported by Patient Measurement Method Physical exam general apperance: no acute distress, AOx3 CV: regular rate and rhythym, normal S1&S2, no MRG Pulm: lungs clear to ausculation, no rubs, ronchi or wheeze present abd: normal bowel sounds, soft, nontender, gastric band port palpated right side laterally to umbilicus Extremities: no signs of peripheral edema, peripheral pulses 2 + at radial, posterior tibial and dorsal pedis Assessment/Plan Assessment: Mrs. Ivey is a 72 year old female with a past medical history significant for DM, Gerd, obesity s/p lap band, and lichen planus presented to the ED yesterday for n/v, and epigastric pain. She reports that these symptoms started on Wednesday and was seen in the ED that evening recieving treatment and discharged feeling better. During her time in the ED her lap band was deflated. The following day she felt better, however she reports 6-7 BMs with her stools being loose and non-bloody. Wednesday morning the pain returned and came to the ED. She was subsequently admitted for medical observation and treatment. Dr. Wang was contacted as he is her gastroentrologist as well as Dr. Miller who performed her lap band surgery in 2005. Plan: Problem list 1. Epigastric pain 2. Diarrhea 3. Lichen planus 4. Chronic medical problems #Epigastric pain: Patient presented with n/v and epigastric pain. She has a family history significant for cardiovascular events with her mother and sister both having previous NE. Therefore she was worked up for possible inferior wall NE, with troponin levels proving to be negative and no glaring acute findings on EKG. This pain is most likely then related to her history consiting of Gerd, hiatal hernia or possibly related to the lap band itself. She reports that when she was in the ED it was relayed to her the lap band may be in an abnormal position and then was deflated. However this would not be a great explination as to why the symptoms abated for one day, only to return Wednesday morning. Therefore it is most likely related to her history of Gerd, which was exacerbated by the fact she was on prednisone for lichen planus treatment, all contributing to a probable gastritis. This also could be related to some sort of infectious process like H. Pylori. Dr. Wang saw Mrs. Ivey today and recommending Endoscopy. -NPO -Endoscopy -IV fluids -Continue Zofran -Continue PPI -consider H. Pylori antigen testing -FOBT to assess progression to ulceration #Diarrhea: Patient reports 6-7 episodes of loose, non-bloody stools on Wednesday only. This is likely due to the irritation caused from gastritis. However infectious causes are being investigated. -C. diff/stool culture -IV fluids -consider antidiarrheal medication if symptoms return #Lichen planus: Due to current symptoms supporting gastritis, as the patient is no longer experiencing symptoms of itchiness or pain it was determined to discontinue prednisone. -continue to monitor -if symptoms return consider topical steroid cream or oral retinoid therapy #chronic medical conditions -continue home medication as prescribed DVT ppx: enoxaparin NPO full code
--- NOTE | 2017-06-29 14:18 | Proc Note Endoscopy ---
Endoscopy Procedure Medical History: unchanged Mental Status: alert/oriented Heart/Lung Eval Prior to Sedation: within normal limits Candidate for Sedation? Yes Procedure Date: 06/29/17 Procedure Type: EGD w/biopsy Wind Field Manager: RENNY QUIROZ MD ASA Classification: II Indications: INDX: (*Please refer to the 06/29/17 GI consult). 72 y/o female, post remote gastric banding 06/2005, with GERD, hiatal hernia, atypical chest pain. The patient has had a CT of the abdomen and upper GI series within the past few days, which were relatively stable, except for small hiatal hernia. The patient's gastric band was deflated by surgery on 06/26/17. Instrument: diagnostic gastroscope Meds Received: MAC Patient's Tolerance: good Complications: none Extent Reached: D3 Procedure: Follow-up upper endoscopy to the third portion of the duodenum with random biopsies, was performed with the Olympus high definition videoendoscope, after obtaining informed consent from the patient, with the quality assurance monitor chassis and pulse oximeter, with the assistance of Dr. Zhou, of [facility]. A mouthpiece was placed in the usual fashion to protect the patient's teeth. The patient was placed in the left lateral decubitus position and sedated by [facility]. At this point, the endoscope was advanced from the mouth into the esophagus, using direct visualization technique. The vocal cords appeared normal. The esophageal mucosa appeared normal. There were no esophageal rings, webs, lesions, strictures, or ulcers. There was no monilia or vesicles. There was no esophageal ribbing. There was suggestion of presbyesophagus, with a slightly tortuous esophageal lumen. The esophageal lumen was patent, without any foreign body. The Z line was well demarcated at 35 cm. There was a 1 cm sliding hiatal hernia pouch, barely seen on retroflexion, more pronounced on direct views. There were no Isaiah erosions. No significant esophageal inflammation was seen. There were no ectopic islands, nor gross Bonilla's esophagus. Based on the patient's atypical symptoms, random esophageal biopsies were obtained: (Specimen C- 35 cm/Z line, Specimen D- 30 cm; rule out EOE). There were no esophageal or gastric varices, nor any Melly Easley tear. The morse of the stomach distended normally with air insufflation, aside from a small portion of the gastric cardia, post lap band. There was no ulceration in the gastric cardia at the site of the lap band. Direct and retroflexed views of the stomach were performed. There was nothing endoscopically to suggest gastroparesis or portal gastropathy. The mucosa of the gastric cardia, fundus, lesser curvature, incisura, body, and antrum appeared normal, without any gastric ulcers or gastric lesions. Based on the patient's vague symptoms, random gastric biopsies were obtained: (Specimen A- antrum, Specimen B- fundus). The pylorus was patent, without any gastric outlet obstruction or channel ulcer. The duodenal bulb, duodenal sweep, & third portion of the duodenum appeared normal, including the ampulla, aside from an incidental, large periampullary diverticulum. There were no duodenal ulcers, distal ulcerations, or angiodysplasias. The folds of the second & third portions of the duodenum were normal in caliber, without any flattening, nodularity, scalloping, or mosaic pattern. No active upper GI bleeding was seen. The patient tolerated the procedure well. Documenting photographs were obtained and placed inside the patient's chart. Impression: 1. Post-gastric lap band. 2. Z line at 35 cm. Random esophageal biopsies obtained: (Specimen C- 35 cm/Z line, Specimen D- 30 cm; rule out EOE). 3. Presbyesophagus. 4. 1 cm hiatal hernia. 5. Random gastric biopsies: (Specimen A- antrum, Specimen B- fundus). 6. Incidental, large periampullary diverticulum. Recommendations: I do not see any endoscopic findings to definitely explain the patient's atypical symptoms. It is possible she could have an underlying esophageal dysmotility. Consider referral for outpatient esophageal manometry, when her gastric band is completely deflated. Increase Prilosec to 40 mg po BID. Antiemetics as needed. IVF. Antireflux measures. The patient can be fed from a GI perspective, but will defer to bariatric surgery, in case they wish to do additional testing. If mild diarrhea persists, check stool C&S, Shiga toxin & C. difficile. As an aside, she is due for follow-up colonoscopy 02/2021 by dates, as per current average-risk for colon cancer screening guidelines. Await random esophageal and gastric biopsies. The patient was advised to call the office within 2 weeks for the pathology results. The above was discussed with the patient & with Dr. Townsend, of the hospitalist service, postoperatively. I also left a message with Dr. Shahid Lutz, postoperatively. Further inpatient GI follow-up as needed. The patient can call my office after discharge for further advice. ADDENDUM: 07/01/2017- A. GASTRIC ANTRUM, RANDOM BIOPSY: MODERATE CHRONIC AND FOCAL MINIMAL ACUTE INFLAMMATION. GIEMSA STAIN IS NEGATIVE FOR HELICOBACTER-TYPE STRUCTURES. NEGATIVE FOR EVIDENCE OF MALIGNANCY. B. GASTRIC FUNDUS, RANDOM BIOPSY: MINIMAL CHRONIC INFLAMMATION. GIEMSA STAIN IS NEGATIVE FOR HELICOBACTER-TYPE STRUCTURES. NEGATIVE FOR EVIDENCE OF MALIGNANCY. C. ESOPHAGUS, RANDOM BIOPSY AT 35 CM/Z LINE: SQUAMOUS MUCOSA WITH FOCAL MINIMAL TO MILD REACTIVE CHANGE, WITHOUT SIGNIFICANT EOSINOPHILIC INFILTRATION. NEGATIVE FOR EVIDENCE OF MALIGNANCY. D. ESOPHAGUS, RANDOM BIOPSY AT 30 CM: SQUAMOUS MUCOSA WITH FOCAL MINIMAL TO MILD REACTIVE CHANGE, WITHOUT SIGNIFICANT EOSINOPHILIC INFILTRATION. NEGATIVE FOR EVIDENCE OF MALIGNANCY. Dictated by: Tomás JACKSON,Tyler Luis. Random antral bxs- mod chronic & focal acute inflammation, HP-neg. Random fundic bxs- minimal chronic inflammation, HP-neg. Random esophageal bxs at 35 cm/Z line - squamous mucosa with mild rx change, neg EOE. Random esophageal bxs at 30 cm- squamous mucosa with mild rx change, neg EOE. The pt was D/C from [facility] , 1 day postop. I called the pt 07/01/17 at 7:36 p.m. at [phone], to inform her of the minimal inflammation noted on random biopsies. I did not see any endoscopic findings to definitely explain the patient's atypical symptoms, aside from perhaps, the presbyesophagus. It is possible she could have an underlying esophageal dysmotility. *Consider referral for outpatient esophageal manometry, perhaps with 24 hr impedance testing, when her gastric band is completely deflated, if sx recur. Increase Prilosec to 40 mg po BID. Antiemetics as needed. Antireflux measures. *Full liquid diet with protein shakes, as per bariatrics. If mild diarrhea recurs, check stool C&S, Shiga toxin & C. difficile. *The patient told me she will be seeing Dr. Sage of bariatrics, tomorrow, on 07/02/17. As an aside, she is due for follow-up colonoscopy 02/2021 by dates, as per current average-risk for colon cancer screening guidelines. CC: Kristian JACKSON,Nadine; Nelda JACKSON,Shahid Conner; Peter JACKSON,Kathleen; Stephanie JACKSON,Ulisses Shirley
--- NOTE | 2017-06-29 14:51 | Cons- Bariatrics Surg ---
General Information and HPI Consulting Request Date of Consult: 06/29/17 Requested By: Nadine Townsend MD Reason for Consult: Nausea/vomiting s/p lap band deflation History of Present Illness: 72-year-old female presented to the emergency room with intractable nausea and vomiting. Patient status post lap band many years ago and has done well. Patient presented to the emergency room on Wednesday with sudden onset of nausea and vomiting. She subsequently had fluid removed from her lap band ( approximately 2 mL), she felt better and went home and was able to tolerate liquids for most of Wednesday. 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 Patient currently feels better and denies any nausea or vomiting, no abdominal pain. Patient denies any other complaints or similar symptoms in the past. Allergies/Medications Allergies: Coded Allergies: adhesive tape (Intermediate, RASH 06/28/17) Penicillins (UNKNOWN 06/28/17) Uncoded Allergies: MOST NARCOTICS (Mild, NAUSEA 06/28/17) Home Med List: Azithromycin (Zithromax Z-Sonny) 250 MG CAP 1 DP PO AD OM 2 the first day followed by 1 for days 2-5 LIDO/MAAL/TISH (Magic Mouthwash) (Lido-Visc2% 30ML/[id number],MAALOX 120ml) 270 ML YEHUDA 10 ML PO TID PRN Mouth Pain EQUAL PARTS Metoclopramide HCl (Reglan) 10 MG TABLET 1 TAB PO Q6-PRN PRN nausea/vomiting 30 minutes before meals and bedtime Omeprazole 40 MG CAPSULE.DR 1 CAP PO DAILY GERD Prednisone 10 MG TAB 1 TAB PO AD INFLAMMATION 3 TABS TWICE A DAY- DAY1,DAY2 2 TABS TWICE A DAY- DAY3,DAY4 3 TABS DAY 5 2 TABS DAY 6 Robitussin AC (Guaifenesin-Codeine Syrup) 10 ML UDC 5 ML PO Q6 COUGH Current Medications: Current Medications Sig/Astrid Start time Last Medication Dose Route Stop Time Status Admin Acetaminophen 650 MG Q6P PRN 06/28 1545 AC PO Chlorhexidine 1 GM .STK-MED ONE 06/29 1347 DC Gluconate TOP 06/29 1348 Dextrose 25 GM ONCE ONE 06/29 0930 DC 06/29 IV 06/29 0931 1019 Dextrose/Sodium 1,000 ML Q13H 06/29 1100 AC Chloride IV Dextrose/Sodium 1,000 ML .[id number] 06/28 1545 DC 06/29 Chloride IV 06/29 1824 0531 Enoxaparin Sodium 40 MG DAILY 06/29 0900 AC 06/29 SC 1017 Escitalopram Oxalate 10 MG 0800 06/29 0800 AC 06/29 PO 1019 Famotidine 0 .STK-MED ONE 06/28 1822 DC IV Famotidine 20 MG ONCE ONE 06/28 1800 DC 06/28 IV 06/28 1801 1828 Lidocaine/Diphenhydr/ 10 ML TID PRN 06/28 1615 CAN Alum/Mg/Simeth PO Pantoprazole Sodium 40 MG DAILY 06/29 0900 AC 06/29 IV 1018 Prochlorperazine 10 MG Q6P PRN 06/28 1930 AC IV Prochlorperazine 25 MG Q6P PRN 06/28 1545 DC [place] Sodium Chloride 500 ML BOLUS ONE 06/28 2245 DC 06/28 IV 06/28 2344 2257 Sodium Chloride 1,000 ML BOLUS ONE 06/28 2045 DC 06/28 IV 06/28 2144 205 Past History Medical History Blood Transfusion Hx: No Neurological: NONE EENT: NONE Cardiovascular: NONE Respiratory: bronchitis, obstructive sleep apnea Gastrointestinal: GERD, hiatal hernia, LAPBAND Hepatic: NONE Renal: NONE Musculoskeletal: OSTEOPENIA Psychiatric: anxiety, depression Endocrine: DIABETES TYPE II Blood Disorders: anemia Cancer(s): NONE COTTON CONVERTER/Reproductive: POLYCYSTIC OVARIAN SYNDR UTI Other Medical Hx: Lichen planus obesity, sp lap band Surgical History Pertinent Surgical History: lap band 2006, tummy tuck ROTATOR CUFF BOTH SHOULDE R ACHILLES TENDON POLYCYSTIC OVARIAN SYNDR - CLEANED APPENDECTOMY TONSILLECTOMY Family History Relations & Conditions If Any: FATHER (Hx PUD). , Age 82; Cause: Bladder cancer. MOTHER (OBS). Age 94. Psychosocial History Where Do You Live? Home Who Do You Live With? spouse Services at Home: None Primary Language: Mohawk Smoking Status: Former Smoker ETOH Use: denies use Illicit Drug Use: denies illicit drug use Living Will? 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 4 kids (3dtr & 1 son)- [employer], 1 of the dtrs with sarcoid, another with fibromyalgia. Ex-15 pk yr cigarette smoker. No EtOH or illicit drugs. Retired from [employer]. Functional Ability ADLs Independent: dressing, eating, toileting, bathing. Ambulation: independent IADLs Independent: shopping, housework, finances, food prep, telephone, transportation , medication admin. Employment History Employment: Retired Profession/Employer: retired from [employer] Review of Systems Review of Systems: Review of systems is all negative aside for the above-mentioned pertinent positives. Exam & Diagnostic Data Vital Signs and I&O Vital Signs Date Time Temp Pulse Resp B/P B/P Pulse O2 O2 Flow FiO2 Mean Ox Delivery Rate 06/29 0600 98.9 61 16 94/62 95 Room Air 06/29 0018 99.2 57 16 98/64 97 Room Air 06/28 2227 96/60 06/28 2031 99.2 71 11 90/54 96 Room Air 06/28 1812 99.7 66 18 142/84 99 Room Air Intake & Output 06/29 1600 06/29 0800 06/29 0000 06/28 1600 06/28 0800 06/28 0000 Intake Total 600 1650 1000 Output Total 300 Balance 600 1650 700 Intake, IV 600 1650 1000 Output, Urine 300 Patient 118 lb 118 lb Weight Weight Bed scale Reported by Patient Measurement Method Physical Exam General Appearance: no apparent distress, alert, awake Head: atraumatic, normal appearance Eyes: Bilateral: normal appearance, EOMI. Ears, Nose, Throat: hearing grossly normal Neck: normal inspection, supple, full range of motion Respiratory: normal breath sounds Cardiovascular: regular rate/rhythm Gastrointestinal: soft, non-tender Rectal: deferred Back: normal inspection, normal range of motion Extremities: normal inspection, normal range of motion, no edema Neurologic/Psych: no motor/sensory deficits, awake, alert, oriented x 3 Cranial Nerves: normal hearing, normal speech Last 24 Hours of Labs: Laboratory Tests 06/29 06/28 0730 2330 Chemistry Sodium (137 - 145 mmol/L) 142 Potassium (3.5 - 5.1 mmol/L) 3.7 Chloride (98 - 107 mmol/L) 107 Carbon Dioxide (22 - 30 mmol/L) 26 Anion Gap (5 - 16) 8 BUN (7 - 17 mg/dL) 8 Creatinine (0.5 - 1.0 mg/dL) 0.5 Estimated GFR (>60 ml/min) > 60 BUN/Creatinine Ratio (7 - 25 %) 16.0 Troponin I (< 0.11 ng/ml) < 0.01 Hematology CBC w Diff NO MAN DIFF REQ WBC (4.8 - 10.8 /CUMM) 7.4 RBC (4.20 - 5.40 /CUMM) 4.20 Hgb (12.0 - 16.0 G/DL) 12.1 Hct (37 - 47 %) 36.2 L MCV (81.0 - 99.0 FL) 86.3 MCH (27.0 - 31.0 PG) 28.8 MCHC (33.0 - 37.0 G/DL) 33.3 RDW (11.5 - 14.5 %) 13.0 Plt Count (130 - 400 /CUMM) 180 MPV (7.4 - 10.4 FL) 9.8 Gran % (42.2 - 75.2 %) 67.1 Lymphocytes % (20.5 - 51.1 %) 22.9 Monocytes % (1.7 - 9.3 %) 8.8 Eosinophils % (0 - 5 %) 0.8 Basophils % (0.0 - 2.0 %) 0.4 Absolute Granulocytes (1.4 - 6.5 /CUMM) 4.9 Absolute Lymphocytes (1.2 - 3.4 /CUMM) 1.7 Absolute Monocytes (0.10 - 0.60 /CUMM) 0.6 Absolute Eosinophils (0.0 - 0.7 /CUMM) 0.1 Absolute Basophils (0.0 - 0.2 /CUMM) 0 Imaging Results: Upper Tete obstruction at the level of the lap band, small hiatal hernia. CT scan abdomen and pelvisno obvious abnormalities, hiatal hernia. Other Results: EGD done today showed questionable presbyesophagus with no other obvious explanation for the nausea and vomiting. Assessment/Plan Assessment/Plan 72-year-old female status post lap band, status post deflation of the band for nausea and vomiting, presented back for intractable nausea and vomiting without an obvious cause. -No further bariatric surgery intervention needed at this time -Okay to discharge patient and follow-up in the office -Patient should be discharged on a clear/full liquid diet with protein shakes -Will follow patient in the office and determine if any other workup is needed -Please reconsult as needed Consult Acknowledgment - Thank you for your consult request.
[2017-06-29 15:00] VITALS: BP 100/60
[2017-06-29 21:38] VITALS: BP 118/70
[2017-06-30 06:41] VITALS: BP 90/60
--- NOTE | 2017-06-30 07:16 | PN- Housestaff ---
See Addendum Subjective Follow-up For: Nausea and vomiting Subjective: No overnight events. Her nausea and vomiting have resolved. She feels well this morning and radial home. Review of Systems Constitutional: Reports: no symptoms. EENTM: Reports: no symptoms. Cardiovascular: Reports: no symptoms. Respiratory: Reports: no symptoms. Gastrointestinal: Reports: no symptoms. Genitourinary: Reports: no symptoms. Musculoskeletal: Reports: no symptoms. Skin: Reports: no symptoms. Neurological/Psychological: Reports: no symptoms. Hematologic/Endocrine: Reports: no symptoms. Immunologic/Allergic: Reports: no symptoms. Objective Last 24 Hrs of Vital Signs/I&O Vital Signs Date Time Temp Pulse Resp B/P B/P Pulse O2 O2 Flow FiO2 Mean Ox Delivery Rate 06/30 0641 98.5 85 20 90/60 100 Room Air 06/29 2138 98.7 64 20 118/70 97 06/29 1500 99.6 74 18 100/60 94 Room Air Intake & Output 06/30 0800 06/30 0000 06/29 1600 Intake Total 250 490 340 Output Total Balance 250 490 340 Intake, IV 10 10 Intake, Oral 240 480 340 Physical Exam General Appearance: Alert, Oriented X3, Cooperative, No Acute Distress Cardiovascular: Regular Rate, Normal S1, Normal S2 Lungs: Clear to Auscultation Abdomen: Normal Bowel Sounds, Soft, No Tenderness Extremities: No Edema, Normal Pulses, No Tenderness/Swelling Current Medications: Current Medications Sig/Astrid Start time Last Medication Dose Route Stop Time Status Admin Acetaminophen 650 MG Q6P PRN 06/28 1545 AC PO Chlorhexidine 1 GM .STK-MED ONE 06/29 1347 DC Gluconate TOP 06/29 1348 Dextrose 25 GM ONCE ONE 06/29 0930 DC 06/29 IV 06/29 0931 1019 Dextrose/Sodium 1,000 ML Q13H 06/29 1100 AC Chloride IV Dextrose/Sodium 1,000 ML .[id number] 06/28 1545 NV 06/29 Chloride IV 06/29 1824 0531 Enoxaparin Sodium 40 MG DAILY 06/29 0900 AC 06/29 SC 1017 Escitalopram Oxalate 10 MG 0800 06/29 0800 AC 06/29 PO 1019 Omeprazole 40 MG 1/2H B/BREAKF/DINNER 06/29 1630 06/30 PO 0607 Pantoprazole Sodium 40 MG DAILY 06/29 0900 DC 06/29 IV 1018 Prochlorperazine 10 MG Q6P PRN 06/28 1930 AC IV Last 24 Hrs of Lab/Theo Results Last 24 Hrs of Labs/Mics: Laboratory Tests 06/29/17 0730: Anion Gap 8, Estimated GFR > 60, BUN/Creatinine Ratio 16.0, CBC w Diff NO MAN DIFF REQ, RBC 4.20, MCV 86.3, MCH 28.8, MCHC 33.3, RDW 13.0, MPV 9.8, Gran % 67.1, Lymphocytes % 22.9, Monocytes % 8.8, Eosinophils % 0.8, Basophils % 0.4, Absolute Granulocytes 4.9, Absolute Lymphocytes 1.7, Absolute Monocytes 0.6, Absolute Eosinophils 0.1, Absolute Basophils 0 Assessment/Plan Assessment: Ms. Ivey is a 72-year-old female with past medical history of diabetes mellitus, GERD, obesity status [place] [address] Miller, lichen planus on prednisone followed by Dr. Talavera, and esophageal spasms followed by Dr. Parkinson who presented with nausea and vomiting. Problem list: 1. Nausea and vomiting 2. Chest pain syndrome, resolved 3. Acute diarrhea, resolved #Nausea and vomiting: Patient presents with nausea and vomiting with history of GERD and previous endoscopy showing esophagitis/gastritis. Upper GI series this time showed esophagitis as well. However, endoscopy yesterday did not reveal any acute inflammation that would be causing her symptoms. Bariatric surgery also evaluated and is recommending that she be discharged on a full liquid diet with protein shakes and follow-up with them as an outpatient. GI is also recommending that she has esophageal manometry as an outpatient. Her symptoms have resolved. -Full liquid diet with protein shakes -Appreciate gastroenterology recommendations -Appreciate bariatric surgery recommendations -Antinausea medications -Outpatient follow-up as above -Continue PPI #Chest pain syndrome: The patient was complaining of chest/upper epigastric pain most likely consistent with the esophagitis/gastritis. Troponins were negative. Chest pain has resolved. -Continue to monitor #Acute diarrhea: Patient was also experiencing 67 nonbloody loose stools per day. Unclear etiology, may be secondary to the stress of the esophagitis. She has not had further episodes of diarrhea. -Continue to monitor #Chronic medical problems: -Continue other home medications DVT prophylaxis with enoxaparin Full liquid diet with protein shakes Full code Problem List: 1. Nausea and vomiting in adult Pain Ratin Pain Location: no Pain Goal: Remain pain free Pain Plan: see a/p Tomorrow's Labs & Rationales: no
[2017-06-30] MEDS ORDERED: OMEPRAZOLE40 M1 PO ×2 (07:17→09:39)
--- NOTE | 2017-06-30 07:20 | Patient Discharge Instructions ---
Discharge Instructions General Discharge Information You were seen/treated for: Nausea and vomiting Watch for these problems: Fever, chest pain, shortness of breath Special Instructions: Please take all medications as directed. Please follow-up with gastroenterology, bariatric surgery, and primary care. Diet Continue normal diet: No Recommended Diet: Full Liquids Additional DIET Information: Protein shakes Acute Coronary Syndrome Inclusion Criteria At DC or during hospital stay patient has or had the following: ACS DIAGNOSIS No Discharge Core Measures Meds if any: Prescribed or Continued at Discharge Meds if any: NOT Prescribed or Continued at Discharge Congestive Heart Failure Inclusion Criteria At DC or during hospital stay patient has or had the following: CHF DIAGNOSIS No Discharge Core Measures Meds if any: Prescribed or Continued at Discharge Meds if any: NOT Prescribed or Continued at Discharge Cerebrovascular accident Inclusion Criteria At DC or during hospital stay patient has or had the following: CVA/TIA Diagnosis No Discharge Core Measures Meds if any: Prescribed or Continued at Discharge Meds if any: NOT Prescribed or Continued at Discharge Venous thromboembolism Inclusion Criteria VTE Diagnosis No VTE Type NONE VTE Confirmed by (Test) NONE Discharge Core Measures - Per Current guidelines, there needs to be overlap - treatment for the first 5 days of Warfarin therapy. - If discharged on Warfarin prior to 5 days of - overlap therapy, the patient will need to be - assessed for post discharge needs including - *Post discharge parental anticoagulation - *Warfarin and/or parental anticoagulation education - *Follow up date to check INR post discharge At least 5 days overlap therapy as Inpatient No Meds if any: Prescribed or Continued at Discharge Note: Overlap Therapy is Warfarin and Anticoagulant Meds if any: NOT Prescribed or Continued at Discharge
--- NOTE | 2017-06-30 09:38 | Discharge Summary ---
See Addendum Visit Information Visit Dates Admission Date: 06/28/17 Discharge Date: 06/30/17 Hospital Course Course Attending Physician: Kristian JACKSON,Nadine Primary Care Physician: Crystal Goetz APRN Hospital Course: Ms. Ivey is a 72-year-old female with past medical history of diabetes mellitus, GERD, obesity status post [place] [address] Miller, lichen planus on prednisone followed by Dr. Talavera, and esophageal spasms followed by Dr. Parkinson who presented with nausea and vomiting. Presentation, vital signs were T 96.7, HR 107, RR 22, BP 159/74, saturating 98% on room air. Laboratories were sent in for normal CBC and BEP and LFTs. Urinalysis was positive for nitrates, leukocyte esterase, and 510 WBCs. Her GI series showed a small hiatal hernia containing the gastric pouch, a subtle nonobstructing Schatzki ring with slight esophageal irregularity of the GE junction raising suspicion for esophagitis, and no evidence of gastric outlet obstruction. She was treated with acetaminophen, metoclopramide, promethazine, famotidine, and 1 L normal saline in the emergency room. She was admitted to general medicine and treated for the following problems: 1. Nausea and vomiting 2. Chest pain syndrome 3. Acute diarrhea #Nausea and vomiting: Patient presented with nausea and vomiting with history of GERD and previous endoscopy showing esophagitis/gastritis. Her prednisone was stopped and she was started on a PPI. Upper GI series this time showed esophagitis as well. However, endoscopy yesterday did not reveal any acute inflammation that would be causing her symptoms. It did show Z line at 35 cm, presbyesophagus, 1 cm hiatal hernia, and an incidental, large periampullary diverticulum. Bariatric surgery also evaluated and recommended that she be discharged on a full liquid diet with protein shakes and follow-up with them as an outpatient. GI is also recommending that she has esophageal manometry as an outpatient. Her symptoms have resolved. #Chest pain syndrome: The patient was complaining of chest/upper epigastric pain most likely consistent with the esophagitis/gastritis. Troponins were negative. Chest pain has resolved. #Acute diarrhea: Patient was also experiencing 67 nonbloody loose stools per day. Unclear etiology, may be secondary to the stress of the esophagitis. She has not had further episodes of diarrhea. #Chronic medical problems: Her other home medications were continued. Allergies: Coded Allergies: adhesive tape (Intermediate, RASH 06/28/17) Penicillins (UNKNOWN 06/28/17) Uncoded Allergies: MOST NARCOTICS (Mild, NAUSEA 06/28/17) Disposition Summary Disposition Principal Diagnosis: 1. Nausea and vomiting Additional Diagnosis: 2. Chest pain syndrome 3. Acute diarrhea Discharge Disposition: home or self care Discharge Instructions General Discharge Information Code Status: Full Code Patient's Diet: Full liquid diet with protein shakes Patient's Activity: As tolerated Follow-Up Instructions/Appts: Please take all medications as directed. Please follow up with bariatric surgery , gastroenterology, and primary care Medications at Discharge Discharge Medications: Stop taking the following medications: Prednisone (Prednisone) 10 MG TAB ORAL As Directed Qty = 25 Azithromycin (Zithromax Z-Sonny) 250 MG CAP ORAL As Directed Qty = 6 Continue taking these medications: LIDO/MAAL/TISH (Magic Mouthwash) (Lido-Visc2% 30ML/[id number],MAALOX 120ml) 270 ML YEHUDA 10 Milliliters ORAL THREE TIMES DAILY as needed for Mouth Pain Days = 7 Instructions: EQUAL PARTS Robitussin AC (Guaifenesin-Codeine Syrup) 10 ML UDC 5 Milliliters ORAL EVERY SIX HOURS Qty = 120 Metoclopramide HCl (Reglan) 10 MG TABLET 1 Tablet ORAL EVERY 6 HOURS NEEDED as needed for nausea/vomiting Qty = 20 Instructions: 30 minutes before meals and bedtime Comments: NOT GIVEN IN THE HOSPITAL Start taking the following new medications: Omeprazole (Omeprazole) 40 MG CAPSULE.DR 1 Capsule ORAL 1/2 HR BEFORE BREAKFAST/DINNER Qty = 60 No Refills Instructions: . Comments: Last Taken: 06/30/17 Time: 6 AM Copies To: Kathleen JACKSON,Howard Garcia; Nelda JACKSON,Shahid Conner; Ming Sage DO; Crystal Goetz APRN; Ilan JACKSON,Lorena Shirley
--- NOTE | 2017-06-30 11:00 | PN- Student ---
Subjective Subjective: No overnight events reported. Patient states she is feeling much better with her epigastric pain and n/v resolved. She did express concern regarding a pulmonary finding on her CT abd/pelvis from 06/26/17 she was told about by the ED physician. She is looking forward to going home. She denies any diarrhea, difficulty breathing, chest pain, palpatations or headache. Objective Objective: Current Medications Sig/Astrid Start time Last Medication Dose Route Stop Time Status Admin Acetaminophen 650 MG Q6P PRN 06/28 1545 AC PO Chlorhexidine 1 GM .STK-MED ONE 06/29 1347 DC Gluconate TOP 06/29 1348 Dextrose/Sodium 1,000 ML Q13H 06/29 1100 AC Chloride IV Enoxaparin Sodium 40 MG DAILY 06/29 0900 AC 06/29 SC 1017 Escitalopram Oxalate 10 MG 0800 06/29 0800 AC 06/30 PO 0806 Omeprazole 40 MG 1/2H B/BREAKF/DINNER 06/29 1630 AC 06/30 PO 0607 Pantoprazole Sodium 40 MG DAILY 06/29 0900 DC 06/29 IV 1018 Prochlorperazine 10 MG Q6P PRN 06/28 1930 AC IV Vital Signs Date Time Temp Pulse Resp B/P B/P Pulse O2 O2 Flow FiO2 Mean Ox Delivery Rate 06/30 0641 98.5 85 20 90/60 100 Room Air 06/29 2138 98.7 64 20 118/70 97 06/29 1500 99.6 74 18 100/60 94 Room Air Intake & Output 06/30 1600 06/30 0800 06/30 0000 Intake Total 250 490 Output Total Balance 250 490 Intake, IV 10 10 Intake, Oral [address] Abd/Pelvis with contrast from 06/26/17 Impressions: Patchy groundglass airspace disease in the bilateral lower lobe, right more than left could represent pneumonia. Clinical correlation is suggested. A moderate size hiatal hernia which contains the proximal stomach above the gastric band. Colon diverticulosis without evidence of acute diverticulitis. Physical Exam: General appearance: AOx3, no evidence acute distress CV: regular rate and rhythym, normal S1 & S2, No MRG Pulm: Lungs clear to ausculatation bilaterally Abd: normal bowel sounds, soft non-tender, gastric band port palpated right lateral to umbilicus Extremities: no peripheral edema, pereira/scaly rash present on forearms bilaterally Assessment/Plan Assessment: Mrs. Ivey is a 72 year old female with a past medical history significant for DM, GERD, obesity s/p lap band, and lichen planus presented to the ED yesterday for n/v, and epigastric pain. She reports that these symptoms started on Wednesday and was seen in the ED that evening recieving treatment and discharged feeling better. During her time in the ED her lap band was deflated. The following day she felt better, however she reports 6-7 BMs with her stools being loose and non-bloody. Wednesday morning the pain returned and came to the ED. She was subsequently admitted for medical observation and treatment. Dr. Wang was contacted as he is her gastroentrologist as well as Dr. Miller who performed her lap band surgery in 2005. She also reported today concern regarding a pulmonary finding on her CT abd/pelvis from 06/26/17 she was told about by the ED physician. These findings were read as ground glass opacities bilaterally in lower lung pool but more predominant on the right side by the radiologist. Plan: Problem List: 1. Epigastric pain 2. Diarrhea 3. Incidental lung findings on CT 4. Lichen Planus 5. Chronic Medical Problems #Epigastric pain: Mrs. Ivey initially presented to the ED for n/v and epigastric pain starting on Wednesday06/26/17. She has a history of GERD and has been on Nexium at home. However she was started on PO Prednisone for recent flair up of Lichen Planus. This most likely led to a decreased protection of her gastric mucosa leading to irritation from gastric acid. This is supported by her reports of increased pain after eating and relief with medication she recieved in the ED on Wednesday as well as her recieving a higher dose of PPIs while inpatient hospitalization from Wednesday until today. She was seen by Dr. Wang and a Endoscopic study was performed yesterdayconfirming erosive esophagitis, which biopsy samples were taken. Furthermore there is a history of hiatal hernia however Dr. Wang discussed this with the patient and did not find it to be of significant contribution to her condition. He also found increased tone at the gastric cardia which may reflect changes due to previous gastric banding procedure. There was also thickening of the pre-pyloric fold, which was biopsied. His reccomendation was to increase her PPI dose and to continue that upon discharge. She no longer is experiencing any epigastric pain or n/v. Patient is stable and feels ready for discharge. -Discharge patient -appreciate GI reccomendations -liquid diet until f/u with GI -pt to f/u with GI for biopsy results from endoscopy -avoid NSAID and corticosteroid use #Diarrhea: resolved, patient had one day (Wednesday) of 6-7 episodes of loose non- bloody stools. Stool culture and C. diff toxin testing cancelled, no episodes of diarrhea since Wednesday. -continue liquid diet -continue oral hydration #Incidental lung findings on CT: Mrs. Ivey initially presented to the ED for n/v and epigastric pain starting on Wednesday06/26/17. For this reason a CT of the abd/pelvis with contrast was done at this visit. The radiologist noted that there was ground glass appearing opacities bilaterally in the lower lung pool with a predominance on the right side. She was told about this finding in the ED and today, asked if she had pneumonia or some other lung infection. However throughout her hospitalization and prior she did not experience any difficulty breathing. She also did not have an elevated white count. Furthermore during her inpatient hospitalization she did not run a fever indicating possible infection. The patient was made aware that this is most likely a non-specific incidental finding. She was also advised that if she were to experience any changes in breathing such as shortness of breath, signs of infection or difficulty breathing to return to the hospital for further eval. All of her questions and concerns were addressed and she felt comfortable returning home today. -No need for further evaluation at this time #Lichen Planus: previously was treated with oral steroids, no longer experiencing any pain/itchiness at the rash. -f/u with derm #Chronic Medical Problems -continue medications as prescribed
== END 2017-06-30 12:20 | DRG 392 ==
LOC: ERH 05:15 → 2NA 15:08 → ERHI 15:08 → ENRESERV 17:12 → ENTRNSPT 19:14 → EDTRNSPTSTS 19:26 → EDTRNSPT 19:26 → 2NA 19:39 → CMPTRNSPT 19:44 → ENPENDDIS 06-30 09:47 → 2NA 06-30 12:20
PROVIDERS: Emergency Medicine; Internal Medicine Hematology & Oncology
PROC: 0DB68ZX Excision of Stomach, Via Natural or Artificial Opening Endoscopic, Diagnostic (ICD-10-PCS; principal; 2017-06-29)
PROC: 0DB58ZX Excision of Esophagus, Via Natural or Artificial Opening Endoscopic, Diagnostic (ICD-10-PCS; principal; 2017-06-29)
DX: K29.70 Gastritis, unspecified, without bleeding (principal); E28.2 Polycystic ovarian syndrome; R11.2 Nausea with vomiting, unspecified; G47.33 Obstructive sleep apnea (adult) (pediatric); K22.4 Dyskinesia of esophagus; L43.9 Lichen planus, unspecified; R07.89 Other chest pain; K44.9 Diaphragmatic hernia without obstruction or gangrene; K21.9 Gastro-esophageal reflux disease without esophagitis; M85.80 Other specified disorders of bone density and structure, unspecified site; R19.7 Diarrhea, unspecified; R10.13 Epigastric pain; Z87.891 Personal history of nicotine dependence; Z88.0 Allergy status to penicillin; Z98.84 Bariatric surgery status; Z91.048 Other nonmedicinal substance allergy status; Z88.5 Allergy status to narcotic agent; Z90.89 Acquired absence of other organs
CPT/HCPCS: 2NAP; 36415; 36592; 74240; 81001; 82436; 87045; 93005; 93010; 96361; 96374; 96375; J0131; J0780; J1650; J2550; J2765; J7042

== ENCOUNTER → 2017-09-03 | Day surgery (SDC) | payer SELFPAY ==
[~2017-09-03] VITALS: Ht 154.9 cm; Wt 55.8 kg
[~2017-09-03] MED LIST changes: +LEXAPRO10 M1 PO; +MERIBIN5 M1 PO; +OMEPRAZOLE40 M1 PO; +TURMERIC500 M2 PO; +VITAMIN B-121000 MC3 PO; +VITAMIN E100 UNI2 PO; +[UNRECOGNIZED DRUG - OTHER] PO
--- NOTE | 2017-09-03 20:05 | Operative Report ---
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 It was well she has recurrent lipomata of the right and left thighs that are enlarging. The patient was given a SPS informed consents to understand and return sign which she has. She has no further questions regarding today. She was marked in the standing position for brachioplasty and extended medial thigh lift the vertical incision. Discussed liposuction of the arms and thighs with skin excision. He talked about infection bleeding pain numbness loss of skin due to open wounds surrounding structures including nerves and veins and symptomatic right unsightly scarring. Once the patient was marked in the standing position she signed informed consent. She was taken to the operative placed supine on the table. Venodyne boots are placed and general anesthesia was established intravenous antibiotics were given. The arms prepped and draped in usual sterile fashion as well as the lower extremities. An of the skin markings and deepened along the honeycombed tissue after performing liposuction of the medial and lateral arms through a stab incision posteriorly distally. It was checked for tension and then the opposite part of the skin paddle was divided with the use of electrocautery. The fascia was not violated. 2 layer closure was carried out. Similar procedure was performed on the left. Attention was then turned to the medial thighs were tailor tacking was performed once adequate the skin was marked and the lindsay were removed. Liposuction was performed after tumescent technique to thin the skin paddle and provide protection of the underlying structures. One portion of the skin paddle markings was deepened elevated through the honeycombed tissue and divided after checking for tension. 2 layer closure was carried out as needed. Attention was then turned to the right lateral hip where she had a recurrent lipomata. Dissection was carried down into the subcutaneous tissue. Since there was significant scarring the lipomata were not and distinct. Dissection was removed and sent for pathologic analysis the wound was closed in 3 layers. Due to that the left side will not be addressed.
== END ==
LOC: STS 01:48
DX: Z41.1 Encounter for cosmetic surgery (principal); E65 Localized adiposity; D17.1 Benign lipomatous neoplasm of skin and subcutaneous tissue of trunk; Z98.84 Bariatric surgery status; L43.9 Lichen planus, unspecified; K21.9 Gastro-esophageal reflux disease without esophagitis
CPT/HCPCS: J0131; J0171; J0690; J2001; J2250; J2405; J3490; Q9968